=== PATIENT | male | born 2005 | race Caucasian/White ===

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

== ENCOUNTER 2024-01-15 14:24 | Outpatient (AMB) | payer MEDICAID, SELFPAY ==
[2024-01-15 14:31] VITALS: BMI 24.8
--- NOTE | 2024-01-15 14:31 | A.OFFVIS_ITS ---
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 Pt states Bilateral UE but Right UE is worse than Left UE. Starting 2 years ago w/ UE numbness, pt is right handed. Accompanied by: Mother Allergies amoxicillin [AMOXICILLIN] Allergy (Unknown, Verified 01/15/24 14:34) RASH HPI HPI COCKTAIL WAITRESS/PCP referral for DIANNA s/p Carotid US: Details: Very pleasant 18-year-old gentleman was referred to us for thoracic outlet syndrome. 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 His upper extremity weakness has progressively gotten worse over the last 2 years. 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 He reports in general weakness, heaviness, and tiring of the upper extremities. Prior to this he was a fairly active child. He denies any history of specific upper extremity sports inclusive of basketball volleyball or a pitcher for baseball. He had been researching this on his own and discovered on a chest x-ray that he had a cervical rib. He has been worked up extensively and has undergone multiple conservative therapies including physical therapy with no significant relief. Of note he is right-hand dominant and he notices that the weakness is right more so than left. He now presents for vascular evaluation. [facility] Medical History Exposure to blood-borne pathogen Social History Patient Tobacco Use Status: Never used Tobacco Review of Systems Const All systems reviewed & are unremarkable except as noted in HPI and below Reports no additional complaints ENT Reports Normal hearing present Card Denies chest pain, Denies chest pain at rest, Denies chest pain with activity and Denies pedal edema Resp Denies cough GI Denies abdominal pain Musc Denies abnormal gait, Denies muscle cramps and Denies radiating pain into limb Skin/Breast Denies skin ulcer and Denies wounds Neuro Reports Normal hearing present and Denies abnormal gait Psych Reports no additional complaints Physical Exam Vital Signs: BMI result Body Mass Index 24.8 Const General: cooperative, healthy appearing and comfortable Orientation/consciousness: oriented to person, oriented to place and oriented to time HEENT Head: Yes normal to inspection Neck Neck: Yes normal visual inspection Carotids: no bruits Chest Chest palpation & inspection: normal inspection of the chest Resp Effort & Inspection: normal respiratory effort and able to speak in complete sentences Auscultation: clear to auscultation bilaterally, no crackles, no rales, no rhonchi and no wheezes Cardio Other: Bilateral palpable brachial radial ulnar pulses. Diminishes on provocation maneuvers. Rate: regular rate Rhythm: regular rhythm Heart sounds: S1 normal heart sound present and S2 normal heart sound present Bruits: no carotid bruits Peripheral pulses: Peripheral pulses 2+ throughout GI Inspection: Yes normal to inspection Skin Wounds: no wounds Hair: normal Neuro General: oriented to person, oriented to place and oriented to time Cranial nerves: Yes CN's II-XII intact bilaterally and Yes Normal hearing present Cognition (Neuro): normal cognition Motor exam (neuro): 5/5 motor strength present throughout Extrem Other: venous exam: No significant superficial varicosities or spider telangiectasias, minimal edema General: No clubbing, No cyanosis and No edema Psych Appearance: grossly normal Mental Status: mental status grossly normal Speech and movement: Normal speech and movement present Results Reviewed Results Reviewed: Carotid duplex dated 11/28/2023 notes elevated peak systolic velocities in bilateral subclavian arteries. On chest x-ray dated 06/14/2023 there is evidence of bilateral cervical ribs. Written report and images of both were reviewed. Assessment & Plan Assessment & Plan (1) Thoracic outlet syndrome associated with cervical rib: Code(s): G54.0 - Brachial plexus disorders; Q76.0 - Spina bifida occulta Category: Medical Plan: In short patient has evidence of neurogenic thoracic outlet syndrome. This astute young man was able to diagnose this and fortunately he was able to advocate for himself to get this further evaluated. He will require thoracic outlet release along with resection of cervical rib. Unfortunately we do not do these at our institution. We will refer him to an appropriate tertiary care center as soon as possible. We will coordinate this for this very nice young man. Thank you for allowing us to participate in his care. If there are any questions or concerns please do not hesitate to contact us. Thoracic outlet syndrome thoracic outlet syndrome Coding Level of Care Code New Pt Level 4 (09594) Diagnoses Thoracic outlet syndrome associated with cervical rib G54.0; Q76.0
== END 2024-01-15 15:00 | disposition home or self-care (01) ==
PROVIDERS: PCP Nurse Practitioner Primary Care; Visit Provider Surgery Vascular Surgery
DX: G54.0 Brachial plexus disorders (principal); Q76.0 Spina bifida occulta
CPT/HCPCS: 99204

== ENCOUNTER → 2024-01-15 14:24 | Outpatient (BNVA) | payer MEDICAID, SELFPAY | PROVIDERS: PCP Nurse Practitioner Primary Care; Visit Provider Surgery Vascular Surgery | DX: G54.0 Brachial plexus disorders (principal); Q76.0 Spina bifida occulta | CPT/HCPCS: 99202 ==

== ENCOUNTER 2024-04-03 15:59 | Outpatient (REF) | payer MEDICAID, SELFPAY ==
--- NOTE | ~2024-04-03 | US_ITS ---
EXAMINATION: US SCROTUM CLINICAL INFORMATION: Epididymitis. COMPARISON: Ultrasound scrotum 09/02/2023. TECHNIQUE: A sonogram of the scrotum was performed assessing naranjo-scale appearance and color Doppler flow. Spectral Doppler analysis of the arterial and venous flow were performed in the testes bilaterally. FINDINGS: RIGHT: Right testicle measures 4.7 x 2.4 x 3.0 cm, volume 18 mL. Parenchymal echotexture is homogeneous. No focal testicular parenchymal lesions are visualized. Spectral Doppler analysis of the arterial and venous flow is normal in the right testis. Right epididymal head is normal in size. No right hydrocele or varicocele is seen. LEFT: Left testicle measures 4.7 x 2.0 x 3.3 cm, volume 17 mL. Parenchymal echotexture is homogeneous. No focal testicular parenchymal lesions are visualized. Spectral Doppler analysis of the arterial and venous flow is normal in the left testis. Left epididymal head is normal in size. No left hydrocele or varicocele is seen. US/US scrotum IMPRESSION: Normal exam. No ultrasonographic evidence of epididymitis. Electronically signed by: Julio Fair MD 04/06/2024 09:21 PM EDT
== END 2024-04-03 16:00 | disposition home or self-care (01) ==
LOC: HO.US 15:59
PROVIDERS: PCP Nurse Practitioner Primary Care; Visit Provider Nurse Practitioner Family
DX: N45.1 Epididymitis (principal)
CPT/HCPCS: 76870

== ENCOUNTER 2024-04-21 22:05 | Emergency (ER) | payer MEDICAID, SELFPAY ==
--- NOTE | ~2024-04-21 | XR_ITS ---
EXAMINATION: XR WRIST, RIGHT CLINICAL INFORMATION: Pain. COMPARISON: None available. TECHNIQUE: PA, lateral, and oblique views of the right wrist. FINDINGS: The bones and soft tissues are normal. No fracture. Alignment is anatomic with normal joint spaces. No erosions or abnormal soft tissue calcifications. XR/XR wrist RT min 3V IMPRESSION: No significant abnormality identified. Electronically signed by: Alexis Galo MD 04/22/2024 04:04 AM EDT
[2024-04-21 22:13] VITALS: BP 119/56; PULSE 76; RESP 20; TEMP 36.8; O2SAT 99; BMI 24.3
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
[2024-04-22] VITALS: BP 103/62; PULSE 63; RESP 16; TEMP 36.4; O2SAT 98
[2024-04-22] MEDS: Ibuprofen 600 MG TABLET PO (00:07)
[2024-04-22] MEDS: Acetaminophen 325 MG TABLET 650 MG PO (00:07)
== END 2024-04-22 01:41 | disposition home or self-care (01) ==
PROVIDERS: Emergency Provider Emergency Medicine; PCP Nurse Practitioner Primary Care
DX: S63.91XA Sprain of unspecified part of right wrist and hand, initial encounter (principal); V19.3XXA Pedal cyclist (driver) (passenger) injured in unspecified nontraffic accident, initial encounter; Y93.55 Activity, bike riding; Y92.410 Unspecified street and highway as the place of occurrence of the external cause; Y99.9 Unspecified external cause status
CPT/HCPCS: 73110; 99283; 99284

== ENCOUNTER 2024-05-07 16:16 | Outpatient (AMB) | payer MEDICAID, SELFPAY ==
--- NOTE | 2024-05-07 16:17 | A.OFFVIS_ITS ---
Intake Visit Reasons: 6m/US(set) Intake Note: Patient presents today for tele visit follow up on: Epididymitis Urology Medications: none Blood Thinner: none Allergies to Antibiotics: Amoxicillin City Controller Required: No Accompanied by: Self / Same As Patient Allergies amoxicillin [AMOXICILLIN] Allergy (Unknown, Verified 05/07/24 16:28) RASH Medication List - Last Reconciled 05/07/24 by ROYER Bills melatonin 10 mg PO BEDTIME PRN methylphenidate HCl ER (Concerta) 36 mg PO DAILY sertraline 25 mg PO DAILY HPI Comments Details: Jorge is a very pleasant 19-year-old male patient of Dr. Duong. He is being followed up on today via telehealth fpr his history of epididymitis. In discussion with the patient today he reports to be doing and feeling well. He denies having had any scrotal/testicular discomfort since his last office visit here approximately 6 months ago. Recent scrotal ultrasound results reviewed with the patient today. Normal exam. No ultrasound however evidence of epididymitis. He does report noting episodes of urinary dribbling we discussed lifestyle such as pelvic floor exercises to assist with this issue. When asked he does report to be sexually active with 1 partner. He reports he has been with his girlfriend for over the last 5 years and does not utilize protection. Discussed at length potential causes epididymitis as well as urinary dribbling. He otherwise denies urinary urgency, urinary frequency, incontinence, nocturia, hematuria, dysuria, foul smelling urine, changes to urinary stream, flank pain, fever, and or chills. He is happy with his current voiding parameters. [facility] Medical History Exposure to blood-borne pathogen Social History Alcohol intake: never Patient Tobacco Use Status: Never used Tobacco Review of Systems Const All systems reviewed & are unremarkable except as noted in HPI and below Physical Exam Const General: cooperative Resp Effort & Inspection: able to speak in complete sentences Psych Attitude: cooperative Thought process: Normal thought process present Thought content: Normal thought content present Insight: Fair insight present (Psych) Judgement: Fair judgement present (Psych) Telehealth Telehealth Telehealth Platform: Seafile Location of provider rendering services: practice address Location of patient: address on file Patient Identification confirmed using: Name, : Yes Telehealth method: voice only Patient verbally consented to treatment: Yes Patient verbally consented to billing insurance company: Yes Patient informed of any privacy concerns related to visit: Yes Minutes spent on Phone/Video with Pt.: 15 Results Reviewed Results Reviewed: Date of Service: 04/03/24 EXAMINATION: US SCROTUM FINDINGS: RIGHT: Right testicle measures 4.7 x 2.4 x 3.0 cm, volume 18 mL. Parenchymal echotexture is homogeneous. No focal testicular parenchymal lesions are visualized. Spectral Doppler analysis of the arterial and venous flow is normal in the right testis. Right epididymal head is normal in size. No right hydrocele or varicocele is seen. LEFT: Left testicle measures 4.7 x 2.0 x 3.3 cm, volume 17 mL. Parenchymal echotexture is homogeneous. No focal testicular parenchymal lesions are visualized. Spectral Doppler analysis of the arterial and venous flow is normal in the left testis. Left epididymal head is normal in size. No left hydrocele or varicocele is seen. IMPRESSION: Normal exam. No ultrasonographic evidence of epididymitis. Assessment & Plan Assessment & Plan (1) Epididymitis: Code(s): N45.1 - Epididymitis Category: Medical Plan Recent scrotal ultrasound results reviewed with the patient today; as noted above. Patient reports pain he had been experiencing has since subsided. Discussed further interventions to assist with urinary dribbling; information provided. We discussed bladder triggers/irritants. Follow-up in 3 months; or sooner with any issues, concerns, and or questions. Patient Instructions: The patient had an opportunity to ask questions regarding the treatment plan. All questions were answered. Physical exam, labs, and imaging were discussed and reviewed in detail. As well as risks, benefits, and discussion of treatment choices. No major barriers to understanding were identified. The patient expressed understanding and agreement with the above treatment plan. The patient was made aware they should contact our office by phone for worsening of their current condition, the appearance of new symptoms, or with any questions or concerns. Compliance is encouraged with any medications and follow up testing that is ordered. It is a privilege to be allowed the opportunity to participate in? your urological care.? Again, if you have any questions or concerns If you have any questions or concerns please do not hesitate to contact me. The office is [phone]. This note is constructed using voice recognition software. While every effort has been made to ensure accuracy wagon winder errors may have been included. Yours sincerely, ROYER Bills Coding Level of Care Code Tele Est Pt Level 3 (19389) Diagnoses Epididymitis N45.1 Time Spent (min) 15
== END 2024-05-07 16:30 | disposition home or self-care (01) ==
LOC: HO.HUSH 16:16
PROVIDERS: PCP Nurse Practitioner Primary Care; Visit Provider Nurse Practitioner Family
DX: N45.1 Epididymitis (principal)
CPT/HCPCS: 99213

== ENCOUNTER → 2024-05-07 16:16 | Outpatient (BNVA) | payer MEDICAID, SELFPAY | PROVIDERS: PCP Nurse Practitioner Primary Care; Visit Provider Nurse Practitioner Family ==

== ENCOUNTER 2024-06-20 11:45 | Outpatient (RCR) | payer OTHER, SELFPAY ==
[2024-06-20 11:54] VITALS: BMI 24.2
[2024-06-20 11:55] VITALS: BP 104/72; PULSE 80; TEMP 37.3
--- NOTE | 2024-06-20 16:08 | PC.ADMIT ---
Patient is a 19 year old who stated they want to transition from male to female. They use she/her pronouns and go by the name of, Lonnie Fleming was referred to [facility] by [facility] and were admitted from 06/09/24-06/16/24 secondary to suicidal ideations since February 2024 and worsening in the past month. She was feeling overwhelmed with school. 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 According to records patient was doing extensive research on statistical probability of dying if she jumps from the 4th or 6th floor [facility] of [facility] library having a 60/5 chance of surviving and that being good enough since it is over 50/5. Also finding a research paper on overdoses of Concerta and the case of someone taking almost 3 grams of Concerta and only having a headache and tachycardia. This was the patients first inpatient LOC. Patient stated he told his therapist his suicidal ideation and therapist recommended she go inpatient thus patient asked her friend to bring her to the hospital where she was evaluated and subsequently admitted. She is in her sophomore year at [employer]. Stated they are doing better in regards college and grades are good. Patient reports she is staying with parents who live in [place] while she is in the program and plans on moving back on campus after she completes [facility]. Discharge paperwork states to stop taking Sertraline. This was also stated on the discharge paperwork that patient brought into program. There was a note in the discharge paperwork that stated [facility] button tufting machine operator Nurse practitioner stated that Sertraline may have contributed to SI. Patient stated to this food writer that he was taking Sertraline 50 mg the entire time while he was in the hospital and has continued this since discharge from the hospital. Sertraline 50 mg was noted in [facility] paperwork notes. She stated she feels she stabilized on Sertraline 50 mg while in the hospital. She denied SI. She also stated no one told her to stop taking the medication and she feels the medication is helping her. Dr Bryan is aware. Patient is alert and oriented x4. She is calm and cooperative. She presented with anxious mood and affect. Reports feeling better since hospitalization and feels stabilized on medications. She denied SI, no HI. She was given a copy of her safety plan. Medications reconciled with patient and patients discharge paperwork from [facility]. Patient reports she usually has 2 mixed drinks on Fridays and has not had alcohol in the past 2 weeks.
--- NOTE | 2024-06-23 10:04 | HO.PHP ---
Jorge contacted the program and noted that he will be opting out of the program. Please review further the discharge summary.
== END 2024-06-20 23:59 | disposition home or self-care (01) ==
LOC: HO.PHPA 11:45
PROVIDERS: Visit Provider Psychiatry & Neurology Psychiatry
DX: F32.A Depression, unspecified (principal); F90.9 Attention-deficit hyperactivity disorder, unspecified type
CPT/HCPCS: 90791; 90853

== ENCOUNTER 2024-08-19 08:33 | Outpatient (AMB) | payer MEDICAID, SELFPAY ==
--- NOTE | 2024-08-19 09:01 | A.OFFVIS_ITS ---
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 Metal Installer Helper Required: No Accompanied by: Self / Same As Patient Allergies amoxicillin [AMOXICILLIN] Allergy (Unknown, Verified 08/19/24 09:41) RASH, HIVES gluten Allergy (Verified 08/19/24 09:41) Gastrointestinal Upset Penicillins [PCN] Allergy (Verified 08/19/24 09:41) Rash, hives Medication List - Last Reconciled 08/19/24 by ARIANA Bills- aripiprazole 5 mg PO DAILY benzoyl peroxide 5% 1 appl topical DAILY guaifenesin 200 mg PO Q4-6H PRN hydroxyzine HCl 50 mg PO Q6H PRN melatonin 10 mg PO BEDTIME PRN methylphenidate HCl ER (Concerta) 36 mg PO DAILY sertraline 50 mg PO DAILY HPI Comments Details: Jorge is a very pleasant 19-year-old male patient of Dr. Duong. He presents to the office today for follow-up of his epididymitis. In discussion with the patient today reports to be doing and feeling well. He denies having had any scrotal/testicular discomfort. Previous workup has included a scrotal ultrasounds. Original scrotal ultrasound 09/22 noted increased flow at the tail of the right epididymis raising suspicion for epididymitis. Normal appearance of testicles. Repeat scrotal ultrasound 04/22 noting normal exam. No ultrasonographic evidence of epididymitis. He does report noting episodes of urinary dribbling. We discussed pelvic floor exercises to assist. He otherwise denies any bothersome urinary issues or concerns. He denies urinary urgency, urinary frequency, incontinence, nocturia, hematuria, dysuria, foul smelling urine, changes to urinary stream, flank pain, fever, and or chills. He is happy with his current voiding parameters. In office urinalysis results reviewed with the patient today. PVR 15ml. He otherwise offers no other issues or concerns at this time. [facility] Medical History Thoracic outlet syndrome Exposure to blood-borne pathogen Surgical History H/O removal of cyst Social History Household Members: Other Household Members Other:: Lives in a dorm room with a roommate Alcohol intake: never Patient Tobacco Use Status: Never used Tobacco Review of Systems Const All systems reviewed & are unremarkable except as noted in HPI and below Physical Exam Const General: cooperative, healthy appearing, comfortable, no acute distress, well developed, alert and awake Nutritional Appearance: average body habitus Orientation/consciousness: patient oriented x3 Limitations: no limitations HEENT Head: Yes normal to inspection, Yes normocephalic and Yes atraumatic Ears: hearing grossly normal bilaterally Eyes General: appearance normal, both eyes and all related structures Neck Neck: Yes normal visual inspection and Yes trachea midline Chest Chest palpation & inspection: normal inspection of the chest Resp Effort & Inspection: normal respiratory effort and able to speak in complete sentences Cardio Rate: regular rate GI Inspection: Yes normal to inspection General: Yes no CVA tenderness Back/Spine/Pelvis Back: no CVA tenderness Skin General skin exam: no rashes or lesions noted Neuro General: patient oriented x3 Extrem General: Yes normal to inspection Psych Appearance: grossly normal and well kempt Mental Status: mental status grossly normal Speech and movement: Normal speech and movement present and Clear speech present Affect: normal affect Attitude: cooperative Thought process: Normal thought process present Thought content: Normal thought content present Insight: Good insight present (Psych) Judgement: Good judgement present (Psych) Office Procedures Post Void Residual Post Residual Void Post Void Residual (PVR): 15 [id number]-[id number] Void Residual by ultrasound Results AMB Urinalysis, Automated UA Leukoctes 0 Santino/uL Last Edit by Marli Luther on 08/19/24 09:41 UA Nitrite Last Edit by Marli Luther on 08/19/24 09:41 UA Urobilinogen 0.2 mg/dL Last Edit by Marli Luther on 08/19/24 09:41 UA Protein 0 mg/dL Last Edit by Marli Luther on 08/19/24 09:41 UA pH 6.0 Last Edit by Marli Luther on 08/19/24 09:41 UA Blood 10 Aidan/uL Last Edit by Marli Luther on 08/19/24 09:41 UA Specific Rose 1.020 Last Edit by Marli Luther on 08/19/24 09:41 UA Ketone Last Edit by Marli Luther on 08/19/24 09:41 UA Bilirubin 0 mg/dL Last Edit by Marli Luther on 08/19/24 09:41 UA Glucose 0 mg/dL Last Edit by Marli Luther on 08/19/24 09:41 Results Reviewed Results Reviewed: Laboratory Last Values Urine pH (Auto) 6.0 08/19/24 09:02 Specific Rose (Auto) 1.020 08/19/24 09:02 Urine Protein (Auto) 0 mg/dL 08/19/24 09:02 Glucose (UA)(Auto) 0 mg/dL 08/19/24 09:02 Urine Blood (Auto) 10 Aidan/uL 08/19/24 09:02 Urine Bilirubin (Auto) 0 mg/dL 08/19/24 09:02 Urine Urobilinogen (Auto) 0.2 mg/dL 08/19/24 09:02 Leukocyte Esterase (Auto) 0 Santino/uL 08/19/24 09:02 Assessment & Plan Assessment & Plan (1) Epididymitis: Code(s): N45.1 - Epididymitis Category: Medical Plan Patient denies any bothersome urinary issues or concerns. He reports be happy with current voiding parameters. Epididymitis has since resolved. We discussed importance of safe sex. Discussed further interventions to assist with urinary dribbling; information pr ovided. Follow-up p.r.n. Orders: Orders AMB Post Void Residual by ultrasound Today Z13.9 - Encounter for screening, unspecified AMB Urinalysis Automated Today Z13.9 - Encounter for screening, unspecified Patient Instructions: The patient had an opportunity to ask questions regarding the treatment plan. All questions were answered. Physical exam, labs, and imaging were discussed and reviewed in detail. As well as risks, benefits, and discussion of treatment choices. No major barriers to understanding were identified. The patient expressed understanding and agreement with the above treatment plan. The patient was made aware they should contact our office by phone for worsening of their current condition, the appearance of new symptoms, or with any questions or concerns. Compliance is encouraged with any medications and follow up testing that is ordered. It is a privilege to be allowed the opportunity to participate in? your urological care.? Again, if you have any questions or concerns If you have any questions or concerns please do not hesitate to contact me. The office is [phone]. This note is constructed using voice recognition software. While every effort has been made to ensure accuracy sanitation engineer errors may have been included. Yours sincerely, ROYER Bills Coding Level of Care Code Est Pt Level 3 (85793) Diagnoses Epididymitis N45.1 CPT Codes Post Residual Void - PVR CPT Code: 35079-Llya Void Residual by ultrasound ([id number])
== END 2024-08-19 09:30 | disposition home or self-care (01) ==
PROVIDERS: PCP Nurse Practitioner Primary Care; Visit Provider Nurse Practitioner Family
DX: N45.1 Epididymitis (principal); Z13.9 Encounter for screening, unspecified
CPT/HCPCS: 99213

== ENCOUNTER → 2024-08-19 08:33 | Outpatient (BNVA) | payer MEDICAID, SELFPAY | PROVIDERS: PCP Nurse Practitioner Primary Care; Visit Provider Nurse Practitioner Family | DX: N45.1 Epididymitis (principal) | CPT/HCPCS: 51798; 81003; 99212 ==

== ENCOUNTER 2024-10-03 13:41 | Outpatient (REF) | payer MEDICAID, SELFPAY ==
--- NOTE | ~2024-10-03 | US_ITS ---
EXAMINATION: Noninvasive assessment of the right upper extremity with ARTERIAL DUPLEX.). CLINICAL INFORMATION: Pain, right upper extremity TECHNIQUE: Duplex Doppler techniques with waveform analysis and measurement of velocities in the right subclavian artery, axillary artery, tracheal artery, radial and ulnar arteries. COMPARISON: None FINDINGS: DIRECT DUPLEX DOPPLER FINDINGS: RIGHT UPPER EXTREMITY: Subclavian artery: 22 cm/s, phasicity: Triphasic. Axillary artery: 146 cm/s, phasicity: Triphasic Brachial artery (proximal): 92 cm/s, phasicity: Triphasic. Brachial artery (distal): 107 cm/s, phasicity: Triphasic. Radial artery: 41 cm/s, phasicity: Triphasic. Ulnar artery: 32 cm/s, phasicity: Triphasic. US/US arterial duplex UE RT IMPRESSION: Normal patency and triphasic waveforms. Electronically signed by: Néstor Ortiz MD 10/06/2024 03:38 PM EDT
--- NOTE | ~2024-10-03 | US_ITS ---
EXAMINATION: US TRIPLEX UPPER EXTREMITY, RIGHT CLINICAL INFORMATION: Pain, right upper extremity. COMPARISON: None available. TECHNIQUE: Color-flow triplex imaging with spectral analysis and compression Doppler was performed on the right upper extremity. FINDINGS: The right internal jugular, subclavian, and axillary veins are patent and free of thrombus. The imaged segment of the right brachiocephalic vein is patent. Spectral doppler waveforms are normal. The brachial, basilic, cephalic, radial, and ulnar veins are patent and compressible. US/US venous duplex UE RT IMPRESSION: No acute deep venous thrombosis involving the right upper extremity. Negative exam.. Electronically signed by: Néstor Ortiz MD 10/06/2024 03:33 PM EDT
--- OUTSIDE RECORDS SUMMARY | 2024-10-03 15:18 | XMS_ITS | Encounter Summary ---
Author Organization [employer] Address [address] [place] [address] [address] [place] [address] Care Team Providers Care Elastic Tape Inserter Name Role Phone Kartik Cuevas MD Primary Care Provider [phone] Ruby Duong Primary Care Provider [phone] Reason for Visit * Reason Onset Date Comments Other 02/07/2023 Encounter Details Date Type Department Care Team ([facility] st Contact Info) Description 02/07/2023 Telephone [facility] [address] [place] [address] Kartik Cuevas MD [address] [place], [place] [phone] Other Social History Tobacco Use Types Packs/Day Years Used Date Smoking Tobacco: Never Smokeless Tobacco: Never Sex and Gender Information Value Date Recorded Sex Assigned at Male 05/29/2022 10:30 AM EDT Legal Sex Male 10:30 AM EDT Gender Identity Transgender Female 07/28/2024 2: 01 PM EST Sexual Orientation Choose not to disclose 2021 10:30 AM EDT COVID-19 Exposure Response Date Recorded In the last 10 days, have yo u been in contact with someone who was confirmed or suspected to have Coronavirus/COVID-19? No / Unsure 02/07/2023 8:34 AM EDT documented as of this encounter Miscellaneous Notes * Telephone Encounter - Kartik Cuevas MD - 02/12/2023 2:38 PM EDT Letter done. * Telephone Encounter - Elizabeth Kowalski - 02/07/2023 3:27 PM EDT Tc from [facility] at [facility] requesting a medical necessity letter from PCP for patient toget wisdom teeth extracted under general anesthesia. Patient has severe dental anxiety and sedationin office has not worked in the past. This letter is needed for medical insurance to approve it. Any further questions please call [phone] and fax number [phone]. documented in this encounter Plan of Treatment Upcoming Encounters Date Type Department Care Team (Late st Contact Info) Description 12/09/2024 9:45 AM EDT Office Visit [facility] [address] [place], [place] [phone] Ruby Duong ANP [address] [place] [address] documented as of this encounter Visit Diagnoses Not on filedocumented in this encounter Care Teams Elastic Tape Inserter Relationship Specialty Start Date End Date Kartik Cuevas MD [address] [place] [address] [phone] PCP - General Pediatrics 11/29/18 05/17/23 Ruby Duong ANP [address] [place] [id number] PCP - General Family Medicine 05/18/23 documented as of this encounter
--- OUTSIDE RECORDS SUMMARY | 2024-10-03 15:18 | XMS_ITS | Encounter Summary ---
Author Organization [employer] Address [address] [facility] [address] [place] [address] Care Team Providers Care Construction Pit Worker Name Role Phone Ruby Duong Primary Care Provider [phone] Reason for Visit * Reason Onset Date Comments Care Management 09/16/2024 C3- chart revi ew Encounter Details Date Type Department Care Team ([facility] st Contact Info) Description 09/16/2024 Telephone [facility] [address] [place] [address] Ruby Duong ANP [address] [place] [address] Care Management (C3CM- chart review) Social History Tobacco Use Types Packs/Day Years Used Date Smoking Tobacco: Never Passive Smoke Exposure: Never Smokeless Tobacco: Never Alcohol Use Standard Drinks/Week Comments Never 0 (1 standard drink = 0.6 oz pur e alcohol) Alcohol Answer Date Recorded How often do you have a drink containing alcohol ? 2 06/16/2024 How many drinks containing a lcohol do you have on a typical day when you are drinking? 0 06/16/2024 How often do you have six or more drinks on one occasion? 0 06/16/2024 Housing Stability Answer Date Recorded What is your housing situation today? I have james aguayo 06/01/[address] you li ve. Do you have problems with any of the following? None of the above 06/01/2023 Food Insecurity Answer Date Recorded Within the past 12 months, y ou worried that your food would run out before you got money to buy more: Never True 06/01/2023 Within the past 12 months,th e food you bought just didn't last and you didn't have enough money to get more: Never True 09/2022 Transportation Answer Date Recorded In the past 12 months, has l ack of transportation kept you from medical appts, meetings, work or from getting things needed for daily living? No 06/01/2023 Utilities Answer Date Recorded In the past 12 months, has t he electric, gas, oil or water company threatened to shut off services in your home? No 06/01/2023 Depression Answer Date Recorded Patient Health Questionnaire-2 Score 0 08/17/2023 Internet Access Answer Date Recorded Internet Access Q1 Yes 03/31/2024 Internet Access Q2 Not on file 03/31/2024 Sex and Gender Information Value Date Recorded Sex Assigned at Male 05/29/2022 10:30 AM EDT Legal Sex Male 10:30 AM EDT Gender Identity Transgender Female 07/28/2024 2: 01 PM EST Sexual Orientation Choose not to disclose 2021 10:30 AM EDT documented as of this encounter Miscellaneous Notes * Telephone Encounter - Shaw Edwards RN - 09/16/2024 8:42 AM EST BERONICA Edwards RN, performed chart review, in anticipation of initial assessment with patient, as patient has stratified for [facility]3 Adult Complex Care through the ADT feed. 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 Specialists include Vascular Surgery, Orthopedic Surgery, Cardiology, and [facility]. ED visits/Hospitalizations within the last 12 months include [facility] 06/09/24-06/16/24 Dx SI, [facility] 05/13/24, [facility] 04/21/24, and Visit 12/18/23. Patient admitted to [facility] 09/12/24-09/15/24 Dx rib resection. Last appointment in PCP office on 04/21/24. Patient no showed visit with PCP on 08/08/24. No future appointments scheduled at this time. documented in this encounter Plan of Treatment Upcoming Encounters Date Type Department Care Team (Late st Contact Info) Description 12/09/2024 9:45 AM EDT Office Visit [facility] [address] [place] [address] Ruby Duong ANP [address] [place] [address] documented as of this encounter Visit Diagnoses Not on filedocumented in this encounter Care Teams Construction Pit Worker Relationship Specialty Start Date End Date Ruby Duong ANP [address] [place] [phone] PCP - General Family Medicine 05/18/23 documented as of this encounter
--- OUTSIDE RECORDS SUMMARY | 2024-10-03 15:18 | XMS_ITS | Encounter Summary ---
Author Organization [employer] Address [address] [facility] [address]t [place] [address] Care Team Providers Care Airport Operations Supervisor Name Role Phone Kartik Cuevas MD Primary Care Provider [phone] Ruby Duong Primary Care Provider [phone] Encounter Details Date Type Department Care Team (Late st Contact Info) Description 02/07/2023 Telephone [facility] [address] [place] [phone] Kartik Cuevas MD [address] [place] [address] Social History Tobacco Use Types Packs/Day Years [...] AM EDT documented as of this encounter Plan of Treatment Upcoming Encounters Date Type Department Care Team (Late st Contact Info) Description 12/09/2024 9:45 AM EDT Office Visit [facility] [address] [place] [phone] Ruby Duong ANP [address] [place] [address] documented as of this encounter Visit Diagnoses Not on filedocumented in this encounter Care Teams Airport Operations Supervisor Relationship Specialty Start Date End Date Kartik Cuevas MD [address] [place] [address] PCP - General Pediatrics 11/29/18 05/17/23 Ruby Duong ANP [address] [place] [address] PCP - General Family Medicine 05/18/23 documented as of this encounter
--- OUTSIDE RECORDS SUMMARY | 2024-10-03 15:18 | XMS_ITS | Encounter Summary ---
Author Organization [employer] Address [address] [facility] 7t [place] [address] Care Team Providers Care Net Repairer Name Role Phone Ruby Duong Primary Care Provider [phone] Reason for Visit * Reason Onset Date Comments ER Follow-up 10/17/2023 Encounter Details Date Type Department Care Team ([facility] st Contact Info) Description 10/17/2023 Telephone [facility] MEDICINE [address] [place], [place] [phone] Ruby Duong ANP [address] [place] [address] ER Follow-up Social History Tobacco Use Types Packs/Day Years Used Date Smoking Tobacco: Never Passive Smoke Exposure: Never Smokeless Tobacco: Never Alcohol Use Standard Drinks/Week Comments Never 0 (1 standard drink = 0.6 oz pur e alcohol) Housing Stability Answer Date Recorded What is [...] t he electric, gas, oil or water [employer] threatened to shut off services in your home? No 06/01/2023 Depression Answer Date Recorded Patient Health Questionnaire-2 Score 0 08/17/2023 Sex and Gender Information Value Date Recorded Sex Assigned at Male 05/29/2022 10:30 AM EDT Legal Sex Male 10:30 AM EDT Gender Identity Transgender Female 07/28/2024 2: 01 PM EST Sexual Orientation Choose not to disclose 2021 10:30 AM EDT documented as of this encounter Miscellaneous Notes * Telephone Encounter - Chica Gallego RN - 10/22/2023 11:32 AM EDT TC placed to patient regarding note below. Patient states that he was seen for a bad episode of chest pain in [facility] ED in 06/21. He states that his BP at the time was very high. Do not see this ED notein chart although there are recent ED visits for testicular pain and concerns about his eye. Patient states that he is still having episodes of chest pain that are short in duration, come on randomly, and last less than 10 minutes. These episodes occur about once a week. He thinks perhaps heshould see a rim roller setter for further evaluation. Patient states that these episodes tend to occur when he is doing his homework and not when engaging in physical activity, such as climbing stairs ordoing exercise. He states that the last episode was a couple of days ago. He states that he has taken his BP at home recently and it is normal. Does not have any records of BP readings from past or recently. Explained to patient that without a recent office visit about chest pain, it may be difficult to place a referral. Offered an office visit with Dr. Alatorre this , 10/25/23, @ 11:30am for evaluation, and patient agreed. No other questions or concerns at this time. Patient advised to go to EDif symptoms recur, worsen, persist. Routing message to PCP for review and back to Green Team Nursesto search for any [facility] ED records we may be missing from 2022. Patient calling to report ED visit on : Date: 06/21 Hospital: [facility] Seen for: Chest pain Patient advised will forward to team nurse for follow up * Telephone Encounter - Lynne Billingsley Hall - 10/17/2023 3:56 PM EDT Patient calling to report ED visit on : Date: 06/21 Hospital: [facility] Seen for: Chest pain Patient advised will forward to team nurse for follow up documented in this encounter Plan of Treatment Upcoming Encounters Date Type Department Care Team (Late st Contact Info) Description 12/09/2024 9:45 AM EDT Office Visit [facility] [address] [place] [address] Ruby Duong ANP [address] [place] [address] documented as of this encounter Visit Diagnoses Not on filedocumented in this encounter Care Teams Net Repairer Relationship Specialty Start Date End Date Ruby Duong ANP [address] [place] [phone] PCP - General Family Medicine 05/18/23 documented as of this encounter
--- OUTSIDE RECORDS SUMMARY | 2024-10-03 15:18 | XMS_ITS | Encounter Summary ---
Author Organization [employer] Address [address] [facility] 7t [place] [address] Care Team Providers Care Drum Printer Name Role Phone Ruby Duong Primary Care Provider [phone] Reason for Visit * Reason Onset Date Comments Med Refill 03/22/2024 Encounter Details Date Type Department Care Team ([facility] st Contact Info) Description 03/22/2024 Refill [facility] MEDICINE [address] [place] [address] Ruby Duong ANP [address] [place] [address] Acne vulgaris Social History Tobacco Use Types Packs/Day Years [...] the past 12 months, has t he [employer], oil or water company threatened to shut [...] Description 12/09/2024 9:45 AM EDT Office Visit [facility] [address] [place] [phone] Ruby Duong ANP [address] [place] [phone] documented as of this encounter Visit Diagnoses Diagnosis Acne vulgaris Other acne documented in this encounter Care Teams Drum Printer Relationship Specialty Start Date End Date Ruby Duong ANP [address] [place] [phone] PCP - General Family Medicine 05/18/23 documented as of this encounter
--- OUTSIDE RECORDS SUMMARY | 2024-10-03 15:18 | XMS_ITS | Encounter Summary ---
Author Organization [employer] Address [address] [place] [address] 7t [place] [address] Care Team Providers Care Mainframe Systems Engineer Name Role Phone Kartik Cuevas MD Primary Care Provider [phone] Ruby Duong Primary Care Provider Reason for Visit * Reason Onset Date Comments Nurse Triage 04/26/2023 Encounter Details Date Type Department Care Team (Late st Contact Info) Description 04/26/2023 Telephone [facility] MEDICINE [address] [place] [address] Kartik Cuevas MD [address] [place] [address] Nurse Triage Social History Tobacco Use Types Packs/Day Years [...] encounter Miscellaneous Notes * Telephone Encounter - Hawa Jordan RN - 04/26/2023 2:59 PM EDT Triage call Pt reports sore throat for a week now, fever of 100.5 and epigastric pain that has become more constant. Pt is not having difficulty swallowing is eating well . Pt denies diarrhea , vomiting or nausea but, reports I felt like throwing up . Last BM was yesterday and stool was hard. Pt is encouraged to increase liquids to 8 glasses/day with juices, ie. apple, prune. Pt agrees to try. Pt is offered the [facility] today but, unable to come due to no apts available at this time in [facility]. Advisedto come first thing in the morning [place] opens at 830am till 400pm. Pt agrees. Pt is advised if symptoms become much worse, increased fever, abdominal pain to seek evaluation in closest ED not waiting for morning WIC and Pt agreed. Multiple (2) protocols were used on this call. Disposition for Call: See in Office or Video Visit Today or Tomorrow Protocol Used: Sore Throat (Adult) Protocol-Based Disposition: See in Office or Video Visit Today or Tomorrow Video visit not offered Positive Triage Question: * Fever present > 3 days (72 hours) * All higher-acuity triage questions were negative Care Advice Discussed: * Drink Plenty of Liquids * Reasons To Call Back - Sore throat is the main symptom and it lasts longer than 48 hours - Sore throat is mild but lasts longer than 4 days - Fever lasts longer than 3 days - You become worse Protocol Used: Abdominal Pain - Upper (Adult) Protocol-Based Disposition: See in Office or Video Visit Today or Tomorrow Video visit not offered Positive Triage Question: * Moderate pain that comes and goes (cramps) lasts > 24 hours * All higher-acuity triage questions were negative Care Advice Discussed: * Reassurance and Education - Stomach Pain * Antacid Medicine * Drink Clear Fluids * Reasons To Call Back - Severe pain present over 1 hour - Constant pain present over 2 hours - Moderate pains come and go for more than 24 hours - Mild pains come and go for more than 72 hours - You become worse * Telephone Encounter - Key Quesada - 04/26/2023 2:40 PM EDT Symptom: Sore Throat and abdominal pain Outcome: Schedule an appointment to be seen within 24 hours Reason: Caller denied all higher acuity questions documented in this encounter Plan of Treatment Upcoming Encounters Date Type Department Care Team (Late st Contact Info) Description 12/09/2024 9:45 AM EDT Office Visit [facility] MEDICINE [address] [place] [address] Ruby Duong ANP [address] [place] [address] documented as of this encounter Visit Diagnoses Not on filedocumented in this encounter Care Teams Mainframe Systems Engineer Relationship Specialty Start Date End Date Kartik Cuevas MD [address] [place] [phone] PCP - General Pediatrics 11/29/18 05/17/23 Ruby Duong ANP [address] [place] [phone] PCP - General Family Medicine 05/18/23 documented as of this encounter
--- OUTSIDE RECORDS SUMMARY | 2024-10-03 15:18 | XMS_ITS | Clinical Summary ---
Author Organization [employer] Address [address] [facility] 7t [place] [address] Care Team Providers Care Diesel Engine Mechanic Name Role Phone Ruby Duong LENA Primary Care Provider [phone] Allergies Active Allergy Reactions Criticality Noted Date Comments Amoxicillin Rash Low 10/17/2022 Penicillins Anaphylaxis,Rash High 04/14/2016 Medications benzoyl peroxide (Benzoyl Peroxide Wash) 5 % external washIndications: Acne vulgaris USE IN PLACE OF BODY WASH ON CHEST AND BACK 236 mL 2 4 Active linaCLOtide (Linzess) 72 MCG capsule Take 72 mcg by mouth before breakfast. 4 Active Concerta 27 MG CR tablet Take 27 mg by mouth in the morning. Active ARIPiprazole (Abilify) 5 MG tablet Take 5 mg by mouth Once per day. 4 Active estradiol (Estrace) 2 MG tabletIndication s:Gender dysphoria Take 1 tablet (2 mg) by mouth 2 times daily. 180 tablet 1 5 Active spironolactone (Aldactone) 50 MG tabletIndication s:Gender dysphoria Take 1 tablet (50 mg) by mouth Once per day. 90 tablet 5 Active cetirizine (ZyrTEC) 10 MG tabletIndication s:Allergic rhinitis due to animal hair and dander Take 1 tablet (10 mg) by mouth if needed each day for allergies. 90 tablet 5 11/07/19 25 Active famotidine (Pepcid) 20 MG tabletIndication s:Gastroesophage al reflux disease, unspecified whether esophagitis present Take 1 tablet twice daily as needed for acid reflux 60 tablet 5 Active sildenafil (Viagra) 50 MG tabletIndication s:Drug-induced erectile dysfunction Take 1 tablet as needed 30 to 60 minutes before sexual activity 30 tablet 1 5 Active Active Problems Problem Noted Date Diagnosed Date Nonintractable headache 11/19/2023 Assessment & Plan (11/19/2023 11:47 AM EDT): It could be related to vascular compression at thoracic outlet level vs Concerta? Will order labs to ro DM, thyroid issues. Recent labs reviewed. Order carotid artery US to ro compression. Advised to remain hydrated, change position very slowly FU w PCP in 3-4w Chest pain 10/25/2023 Overview (10/25/2023): - Non cardiac in nature, multiple past ECGs normal, vital signs stable - Likely psychosocial stressors, no evidence of costochondritis or reflux - Somatic techniques discussed and advised to speak with therapist about stress relieving techniques - Continue to monitor and let us know if symptoms worsen or do not improve Assessment & Plan (10/25/2023 11:53 AM EDT): - Non cardiac in nature, multiple past ECGs normal, vital signs stable - Likely psychosocial stressors, no evidence of costochondritis or reflux - Somatic techniques discussed and advised to speak with therapist about stress relieving techniques - Continue to monitor and let us know if symptoms worsen or do not improve De Quervain's tenosynovitis 10/25/2023 Mild carpal tunnel syndrome of right wrist 10/24 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 FU w PCP Right arm pain 10/25/2023 Overview (10/25/2023): - Pt has concerns about his X-rays, which are not available to me at this time - Records he needs a new referral to Orthopedics, referral placed 10/25/23 Assessment & Plan (10/25/2023 11:52 AM EDT): - Pt has concerns about his X-rays, which are not available to me at this time - Records he needs a new referral to Orthopedics, referral placed 10/25/23 Chronic right shoulder pain 02/07/2023 Constipation 10/17/2022 Hypertriglyceridemia 07/03/2022 Learning disability 07/03/2022 Attention deficit hyperactivity disorder 022 Resolved Problems Problem Noted Date Diagnosed Date Resolved Date Tachycardia 11/19/2023 12/10/2023 Assessment & Plan (11/19/2023 11:50 AM EDT): Improved at the end of visit. FU with PCP, may need ECG, sec to concerta? Epididymitis 10/25/2023 12/10/2023 Exposure to blood-borne pathogen 10/25/2023 12/10/2023 Exposure to body fluid 10/25/202312/09 Pain in right testicle 10/25/202312/09 Relapsing fever 10/17/2022 10/17/2022 Developmental academic disorder 10/09/2022 10/17/2022 ADHD (attention deficit hype ractivity disorder), combined type 07/03/2022 10/17/2022 Encounters Date Type Department Care Team Description 09/16/2024 Patient Outreach [facility] [address] [place] [address] Ruby Duong ANP Transition Of Care (Tcm) (HDF unscheduled. ) 09/16/[address] [address] Ruby Duong ANP Care Management (C3CM- chart review) 09/08/[address] [phone] Ruby Duong ANP Referral 08/08/[address] [place] [address] Ruby Duong ANP 08/03/2024 Travel 07/28/2024 Orders Only [facility] [address] [place] [address] Ruby Duong ANP from Last 3 Months Immunizations Name Administration Dates Next Due DTaP, 5 pertussis antigens 06/19/2005,,2004,03/22 HPV 9-Valent 05/24/2017,03/30/2016 Hep A, ped/adol, 2 dose 05/24/2017,03/30/2016 Hep B, Adolescent or Pediatric 2004,2003,2004 Hep B, adult 11/26/2023,06/25/2023,05/28/2023 HiB, unspecified 2004 Hib (PRP-T) 2004,2004 IPV 03/30/2016, 5,2004,03/22 Influenza injectable quadriv alent preservative free 05/28/2023,06/29/2021,10/01/2020,05/14,05/24/2017,04/14/2016,05/07/2014 MMR 02/18/2013,2005 Meningococcal MCV4P ACYW-135 10/01/2020,04/14/20 16 Pfizer Covid-19 Vaccine 12+ 04/21/2024,1 ,10/22/2021,12/14,11/23/2020 Pfizer Covid-19 Vaccine 12+ kelly-sucrose ([place]keon Cap) 10/22/2021 Pneumococcal Conjugate PCV 13 06/02/2005 ,2004,2004,03/22 Tdap 03/30/2016 Varicella 02/18/2013,2005,2004 Social History Tobacco Use Types Packs/Day Years Used Date Smoking Tobacco: Never Passive Smoke Exposure: Never Smokeless Tobacco: Never Tobacco Cessation:Counseling Given: Not Answered Alcohol Use Standard Drinks/Week Comments Never 0 [...] not to disclose 2021 10:30 AM EDT Last Filed Vital Signs Vital Sign Reading Time Taken Comments Blood Pressure 117/70 04/21/2024 11:35 AM EDT Pulse 78 04/21/2024 11:35 AM EDT Temperature 36.9 ??C (98.5 ??F) 04/21/2024 11:35 AM E DT Respiratory Rate 16 04/21/2024 11:35 AM EDT Oxygen Saturation 98% 04/21/2024 11:35 AM EDT Inhaled Oxygen Concentration - - Weight 73.7 kg (162 lb 6.4 oz) 04/21/2024 11:35 AM EDT Height 175.3 cm (5' 9 ) 04/21/2024 11:35 AM EDT Body Mass Index 23.98 04/21/2024 11:35 AM EDT Plan of Treatment Upcoming Encounters Date Type Department Care Team (Late st Contact Info) Description 12/09/2024 9:45 AM EDT Office Visit [facility] [address] [place], [place] [phone] Ruby Duong, ANP [address] [place] [address] Health Maintenance Due Date Last Done Comments Family Planning (PISQ) 01/18/2019 Depression Screening 08/17/2024 08/17/2023, 08/17/19 24 SDOH Screening 08/17/2024 08/17/2023 Chlamydia and Gonorrhea Screening 09/01/2024 09/01/2023, 02/16/2021 Tobacco Screening 04/21/2025 04/21/2024 Alcohol/Substance Use Screening 06/16/2025 06/16/2024 DTaP/Tdap/Td Vaccines (6 - Td or Tdap) 03/30/2026 03/30/2016, 06/19/2005, 2004, Additional history exists Zoster Vaccines (1 of 2) 01/18/2054 RSV Patients and Patients Aged 60 years or older (1 - 1-dose 75+ series) 01/18/2079 HIB Vaccines Aged Out 2004, 04/30, 2004 No longer eligible based on patient's age to complete this topic Pneumococcal Vaccine: Pediatrics (0 to 5 Years) and At-Risk Patients (6 to 49) Years) Completed 06/02/2005, 2004, 2004, Additional history exists IPV Vaccines Completed 03/30/2016, 07/2004, 2004, Additional history exists HPV Vaccines Completed 05/24/2017, 03/30/2016 Hepatitis A Vaccines Completed 05/24/2017, 03/30/20 16 Meningococcal Vaccine Completed 10/01/2020, 016 HIV Screening Completed 05/26/2023, 02/16/2021 Hepatitis C Screening Completed 05/26/2023, 021 Hepatitis B Vaccines Completed 11/26/2023, 06/25/2023, 05/28/2023, Additional history exists COVID-19 Vaccine Completed 04/21/2024, , 10/22/2021, Additional history exists Influenza Vaccine Completed 04/25/2024, , 06/29/2021, Additional history exists RSV under 20 months Aged Out No longe r eligible based on patient's age to complete this topic Rotavirus Vaccines Aged Out No longer eligible based on patient's age to complete this topic Procedures Procedure Name Priority Date/Time Associated Diagnosis Comments CHLAMYDIA/N. GONORRHOEAE RNA, TMA, UROGENITAL Routine 09/01/2023 7:22 PM EST HEPATITIS EXPOSURE SOURCE Routine 05/26/2023 2:23 PM EDT HIV ANTIBODY/ANTIGEN ([place] DPH) Routine 05/26/2023 2:23 PM EDT from Last 3 Months or Most Recently Relevant to Health Maintenance Results * Chlamydia/N. Gonorrhoeae RNA, TMA, Urogenitial (09/01/2023 7:22 PM EST) CT PCR NOT DETECTED Not Detect. [facility] Comment:A not detected test result does not exclude the possibilityof infection because test results can be affected byimproper specimen collection, concurrent antibiotic therapy,or the number of organisms in the specimen which may bebelow the sensitivity of the test. As with many diagnostictests, results from the Xpert CT/NG assay should beinterpreted in conjunction with other laboratory andclinical data available to the clinician.Xpert CT/NG performance has not been evaluated in patientsless than 14 years of age. The assay should not be used forthe evaluationof suspected sexual abuse or for other medico-legalindications. Additional testing is recommended in anycircumstance when false positive or false negative resultscould lead to adverse medical, social or psychologicalconsequences. NG PCR NOT DETECTED Not Detect. [facility] Comment:A not detected test result does not exclude the possibilityof infection because test results can be affected byimproper specimen collection, concurrent antibiotic therapy,or the number of organisms in the specimen which may bebelow the sensitivity of the test. As with many diagnostictests, results from the Xpert CT/NG assay should beinterpreted in conjunction with other laboratory andclinical data available to the clinician.Xpert CT/NG performance has not been evaluated in patientsless than 14 years of age. The assay should not be used forthe evaluationof suspected sexual abuse or for other medico-legalindications. Additional testing is recommended in anycircumstance when false positive or false negative resultscould lead to adverse medical, social or psychologicalconsequences. 09/01/2023 7:22 PM EST 09/01/2023 7:26 PM EST Narrative [facility] - 09/02/2023 2:57 AM EST [facility] External Data Provider LAB MICROBIOLOGY - GENERAL ORDERABLES Final Result Performing Organization Address [facility]/ZIP Co de Phone Number [facility] [address] [place] [phone] * Hepatitis Exposure Source (05/26/2023 2:23 PM EDT) [facility] ~Hepatitis B Surface Antibody NONREACTIVE Nonreactive [facility] Comment:Nonreactive: < 8.00 mIU/mL Hepatitis B Core Antibody Nonreactive Nonreactive [facility] Hepatitis C Ab NonReactive Nonreactive [facility] Hepatitis B Surface Ag Negative Negative [facility] 05/26/2023 2:23 PM EDT 05/26/2023 2:46 PM EDT [facility] External Provider LAB BLO OD ORDERABLES Final Result Performing Organization Address [facility] Co de Phone Number [facility] [address] [place] [phone] * HIV Ab/Ag (SC RICHY) (05/26/2023 2:23 PM EDT) [facility] HIV AB/AG Nonreactive Nonreactive [facility] Comment:HIV-1 p24 Ag and/or HIV-1/HIV-2 Ab not detected.A test result that is nonreactive does not exclude thepossibility of exposure to or infection with HIV-1 and/orHIV-2. Nonreactive results in this assay for individualswith prior exposure to HIV-1 and/or HIV-2 may be due toantigen and antibody levels that are below the limit ofdetection of this assay.The Reaction HIV Ag/Ab Combo assay result andsupplemental assay results should be interpreted inconjunction with the patient's clinical presentation,history and other laboratory results. If the results areinconsistent with clinical evidence, additional testing issuggested to confirm the result. 05/26/2023 2:23 PM EDT 05/26/2023 2:46 PM EDT us Generic External Data Provider LAB BLOOD ORDERAB LES Final Result [facility] [address] [place] [phone] from Last 3 Months or Most Recently Relevant to Health Maintenance Insurance [facility] [employer] Care Teams Diesel Engine Mechanic Relationship Specialty Start Date End Date Ruby Duong ANP [address] [place] [phone] PCP - General Family Medicine 05/18/23
--- OUTSIDE RECORDS SUMMARY | 2024-10-03 15:18 | XMS_ITS | Encounter Summary ---
Author Organization [email or web address] Address [address] [facility] [address]t [place] [address] Care Team Providers Care Dragline Mechanic Name Role Phone Ruby Duong Primary Care Provider [phone] Reason for Visit * Reason Onset Date Comments Med Refill 01/05/2024 Encounter Details Date Type Department Care Team ([facility] st Contact Info) Description 01/05/2024 Refill [facility] MEDICINE [address] [place], [place] [phone] Ruby Duong ANP [address] [place] [address] Acne vulgaris Social History Tobacco Use Types [...] the past 12 months, has t he [employer], oil or water company threatened to shut [...] Description 12/09/2024 9:45 AM EDT Office Visit [facility] MEDICINE [address] [place] [phone] Ruby Duong ANP [address] [place] [phone] documented as of this encounter Visit Diagnoses Diagnosis Acne vulgaris Other acne documented in this encounter Care Teams Dragline Mechanic Relationship Specialty Start Date End Date Ruby Duong ANP [address] [place] [phone] PCP - General Family Medicine 05/18/23 documented as of this encounter
--- OUTSIDE RECORDS SUMMARY | 2024-10-03 15:18 | XMS_ITS | Encounter Summary ---
Author Organization [employer] Address [address] [facility] 7t [place] [address] Care Team Providers Care Machine Heel Seat Laster Name Role Phone Ruby Duong Primary Care Provider [phone] Reason for Visit * Reason Onset Date Comments Referral 09/08/2024 Encounter Details Date Type Department Care Team ([facility] [place] st Contact Info) Description 09/08/[address] [facility] MEDICINE [address] [place] [address] Ruby Duong ANP [address] [place] [address] Referral Social History Tobacco Use Types Packs/Day Years [...] is your housing situation today? I have jamessivan aguayo 06/01/[address] you [...] encounter Miscellaneous Notes * Telephone Encounter - Christina Dowell RN - 09/16/2024 3:50 PM EST Faxed script to Eladio as below * Telephone Encounter - Cinthia Husain RN - 09/12/2024 2:13 PM EST Script generated, placed on PCP desk for signature. * Telephone Encounter - Erasmo Jo - 09/12/2024 12:04 PM EST TC from Eladio who received insurance referral below Address: [address] [place] [address] Facility Name: [facility] Type of Specialist: [facility] DX: Referring for speech Therapy Eladio Mejía submitted referral to [facility] and denied, they told him its not a referral that is needed but a script that is required for this service. Script need to state below requirements: Members Name DX of why service required : F64.9 Reason for script : speech therapy Date of Script (would be today date) Prescribing providers Signature and contact information including NPI and telephone number . Please fax to Eladio : [phone] * Telephone Encounter - Fatoumata Singh - 09/11/2024 9:49 AM EST Auth # [id number] 12 visit start date 09/08/2024 end 09/08/2025 was faxed to [phone] * Telephone Encounter - Erasmo Jo - 09/08/2024 12:18 PM EST TC from Eladio requesting renewal of referral : DATE: 09/19/24 TIME: 10am Address: [address] [place] [address] Facility Name: [facility] Type of Specialist: [facility] DX: Referring for speech Therapy [facility] Phone # : [phone] Fax #: [phone] documented in this encounter Plan of Treatment Upcoming Encounters Date Type Department Care Team (Late st Contact Info) Description 12/09/2024 9:45 AM EDT Office Visit [facility] MEDICINE [address] [place] [address] Ruby Duong ANP [address] [place] [address] documented as of this encounter Visit Diagnoses Not on filedocumented in this encounter Care Teams Machine Heel Seat Laster Relationship Specialty Start Date End Date Ruby Duong ANP [address] [place] [address] PCP - General Family Medicine 05/18/23 documented as of this encounter
--- OUTSIDE RECORDS SUMMARY | 2024-10-03 15:18 | XMS_ITS | Encounter Summary ---
Author Organization [employer] Address [address] [facility] 7t [place] [address] Care Team Providers Care Boat And Plant Utility Supervisor Name Role Phone Ruby Duong Primary Care Provider [phone] Reason for Visit * Reason Comments Transition Of Care (Tcm) HDF unscheduled . Encounter Details Date Type Department Care Team ([facility] Contact Info) Description 09/16/2024 Patient Outreach [facility] MED & PEDS [address] [place], [place] [phone] Ruby Duong ANP [address] [place] [address] Transition Of Care (Tcm) (HDF unscheduled. ) Social History Tobacco Use Types Packs/Day Years [...] as of this encounter Miscellaneous Notes * Significant Event - Luh Amor - 09/16/2024 10:00 AM EST 09/16/24 0958 Hospital Discharges and Admission for [facility] Type of Visit Hospital Admission Date of Admission/Visit 09/12/24 Date of Discharge 09/15/24 Facility [facility] Diagnosis Brachial plexus disorders Disposition Discharged Home Follow-Up Actions Follow-Up Needed Provider appointment Initial Contact Date 09/16/24 CINTHYA Hernadez placed outbound call to patient for HDF outreach. Patient's name and were confirmed. Patient educated on the importance of follow up with provider following inpatient admission. Patient was admitted for surgery. Patient already has follow up appointment with surgeon. CC will request discharge summary to be scanned into patient's chart. documented in this encounter Plan of Treatment Upcoming Encounters Date Type Department Care Team (Late st Contact Info) Description 12/09/2024 9:45 AM EDT Office Visit [facility] MEDICINE [address] [place] [address] Ruby Duong ANP [address] [place] [address] documented as of this encounter Visit Diagnoses Not on filedocumented in this encounter Care Teams Boat And Plant Utility Supervisor Relationship Specialty Start Date End Date Ruby Duong ANP [address] [place] [address] PCP - General Family Medicine 05/18/23 documented as of this encounter
--- OUTSIDE RECORDS SUMMARY | 2024-10-03 15:18 | XMS_ITS | Encounter Summary ---
Author Organization [employer] Address [address] [facility] 7t [place] [address] Care Team Providers Care Printed Circuit Boards Stripper Etcher Name Role Phone Ruby Duong Primary Care Provider [phone] Encounter Details Date Type Department Care Team ([facility] st Contact Info) Description 06/19/2023 Telephone [facility] MEDICINE [address] [place] [address] Ruby Duong ANP [address] [place] [address] Social History Tobacco Use Types Packs/Day Years Used Date Smoking Tobacco: Never Passive Smoke Exposure: Never Smokeless Tobacco: Never Housing Stability Answer Date Recorded What is [...] off services in your home? No 06/01/2023 Sex and Gender Information Value Date Recorded [...] Description 12/09/2024 9:45 AM EDT Office Visit [facility] MEDICINE [address] [place] [address] Ruby Duong ANP [address] [place] [address] documented as of this encounter Visit Diagnoses Not on filedocumented in this encounter Care Teams Printed Circuit Boards Stripper Etcher Relationship Specialty Start Date End Date Ruby Duong ANP [address] [place] [address] PCP - General Family Medicine 05/18/23 documented as of this encounter
== END 2024-10-03 13:42 | disposition home or self-care (01) ==
LOC: HO.HMGCX 13:41
PROVIDERS: PCP Nurse Practitioner Primary Care; Visit Provider Surgery Vascular Surgery
DX: M79.601 Pain in right arm (principal); G54.0 Brachial plexus disorders
CPT/HCPCS: 93931; 93971

== ENCOUNTER → 2024-10-03 13:43 | Outpatient (BNV) | payer MEDICAID, SELFPAY | PROVIDERS: PCP Nurse Practitioner Primary Care; Visit Provider Radiology Diagnostic Radiology | DX: M79.621 Pain in right upper arm (principal) | CPT/HCPCS: 93931; 93971 ==

== ENCOUNTER 2024-11-12 09:30 | Outpatient (REF) | payer MEDICAID, SELFPAY ==
--- OUTSIDE RECORDS SUMMARY | 2024-11-12 10:32 | XMS_ITS | Encounter Summary ---
Author Organization [email or web address] Address [address] [facility] [address] 7t [place] [address] Care Team Providers Care Group Burner Machine Name Role Phone Ruby Duong Primary Care Provider [phone] Encounter Details Date Type Department Care Team ([facility] st Contact Info) Description 11/10/2024 Orders Only [facility] MEDICINE [address] [place] [address] Ruby Duong ANP [address] [place] [address] Gender dysphoria (Primary Dx) Social History Tobacco Use Types Packs/Day Years [...] AM EDT documented as of this encounter Progress Notes * LENA Osman - 11/10/2024 10:46 AM EDT Check routine labs & estradiol/testosterone prn & q3 mos in 1st year (if needed), plus renal function & LFTs q3 mos for 1st year then every 6-12 mos, A1c/lipids per USPSTF, & prolactin prn should sx of prolactinoma occur. documented in this encounter Plan of Treatment Upcoming Encounters Date Type Department Care Team (Late st Contact Info) Description 12/09/2024 9:45 AM EDT Office Visit [facility] MEDICINE [address] [place] [address] Ruby Duong ANP [address] [place] [address] Scheduled Orders Name Type Priority Associated Diagnoses Orde r Schedule Hepatic Function Panel Lab Routine Gender dysphoria Expected: 11/10/2024 (Approximate), Expires: 11/10/2025 Estradiol Lab Routine Gender dysphoria Expected: 11/10/2024, Expires: 11/10/2025 Testosterone, Free (Dialysis) And Total, MS Lab Routine Gender dysphoria Expected: 11/10/2024 (Approximate), Expires: 11/10/2025 documented as of this encounter Visit Diagnoses Diagnosis Gender dysphoria- Primary documented in this encounter Care Teams Group Burner Machine Relationship Specialty Start Date End Date Ruby Duong ANP [address] [place] [address] PCP - General Family Medicine 05/18/23 documented as of this encounter
--- OUTSIDE RECORDS SUMMARY | 2024-11-12 10:32 | XMS_ITS | Encounter Summary ---
Author Organization [employer] Address [address] [place] [address] 7t [place] [address] Care Team Providers Care Drum Maker Name Role Phone Kartik Cuevas MD Primary Care Provider [phone] Ruby Duong Primary Care Provider [phone] Encounter Details Date Type Department Care Team (Late st Contact Info) Description 02/07/2023 Telephone [facility] [address] [place] [phone] Kartik Cuevas MD [address] [place] [address] Social History Tobacco Use Types Packs/Day Years [...] Description 12/09/2024 9:45 AM EDT Office Visit [facility] [address] [place] [address] Ruby Duong ANP [address] [place] [address] documented as of this encounter Visit Diagnoses Not on filedocumented in this encounter Care Teams Drum Maker Relationship Specialty Start Date End Date Kartik Cuevas MD [address] [place] [address] PCP - General Pediatrics 11/29/18 05/17/23 Ruby Duong ANP [address] [place] [address] PCP - General Family Medicine 05/18/23 documented as of this encounter
--- OUTSIDE RECORDS SUMMARY | 2024-11-12 10:32 | XMS_ITS | Encounter Summary ---
Author Organization [employer] Address [address] [place] [address] 7t [place] [address] Care Team Providers Care Traffic Division Commanding Officer Name Role Phone Kartik Cuevas MD Primary Care Provider [phone] Ruby Duong Primary Care Provider [phone] Reason for Visit * Reason Onset Date Comments Nurse Triage 04/26/2023 Encounter Details Date Type Department Care Team (Late st Contact Info) Description 04/26/2023 Telephone [facility] MEDICINE [address] [place] [address] Kartik Cuevas MD [address] [place] [address] Nurse Triage Social History Tobacco Use Types [...] agrees to try. Pt is offered the [facility] today but, unable to come due to no apts available at this time in [facility]. Advisedto come first thing in the morning [...] Description 12/09/2024 9:45 AM EDT Office Visit [facility] MEDICINE [address] [place] [address] Ruby Duong ANP [address] [place] [address] documented as of this encounter Visit Diagnoses Not on filedocumented in this encounter Care Teams Traffic Division Commanding Officer Relationship Specialty Start Date End Date Kartik Cuevas MD [address] [place] [address] PCP - General Pediatrics 11/29/18 05/17/23 Ruby Duong ANP [address] [place] [address] PCP - General Family Medicine 05/18/23 documented as of this encounter
--- OUTSIDE RECORDS SUMMARY | 2024-11-12 10:32 | XMS_ITS | Encounter Summary ---
Author Organization [employer] Address [address] [facility] 7t [place] [address] Care Team Providers Care Pathology Technician Name Role Phone Ruby Duong Primary Care Provider [phone] Reason for Visit * Reason Onset Date Comments Med Refill 10/30/2024 Encounter Details Date Type Department Care Team ([facility] st Contact Info) Description 10/30/2024 Refill [facility] MEDICINE [address] [place], [place] [phone] Ruby Duong ANP [address] [place] [address] Gender dysphoria Social History Tobacco Use Types Packs/Day Years [...] Description 12/09/2024 9:45 AM EDT Office Visit [facility] MEDICINE [address] [place] [address] Ruby Duong ANP [address] [place] [address] documented as of this encounter Visit Diagnoses Diagnosis Gender dysphoria documented in this encounter Care Teams Pathology Technician Relationship Specialty Start Date End Date Ruyb Duong ANP [address] [place] [address] PCP - General Family Medicine 05/18/23 documented as of this encounter
--- OUTSIDE RECORDS SUMMARY | 2024-11-12 10:32 | XMS_ITS | Encounter Summary ---
Author Organization [employer] Address [address] [facility] 7t [place] [address] Care Team Providers Care Funeral Sales Manager Name Role Phone Ruby Duong Primary Care Provider [phone] Reason for Visit * Reason Onset Date Comments Med Refill 03/22/2024 Encounter Details Date Type Department Care Team ([facility] st Contact Info) Description 03/22/2024 Refill [facility] MEDICINE [address] [place] [address] Ruby Duong ANP [address] [place] [address] Acne vulgaris Social History Tobacco Use Types [...] the past 12 months, has t he [employer], [employer], oil or water company threatened to shut [...] Description 12/09/2024 9:45 AM EDT Office Visit [facility] MEDICINE [address] [place] [address] Ruby Duong ANP [address] [place] [address] documented as of this encounter Visit Diagnoses Diagnosis Acne vulgaris Other acne documented in this encounter Care Teams Funeral Sales Manager Relationship Specialty Start Date End Date Ruby Duong ANP [address] [place] [address] PCP - General Family Medicine 05/18/23 documented as of this encounter
--- OUTSIDE RECORDS SUMMARY | 2024-11-12 10:32 | XMS_ITS | Encounter Summary ---
Author Organization [employer] Address [address] [facility] 7t [place] [address] Care Team Providers Care Chop Saw Operator Name Role Phone Ruby Duong Primary Care Provider [phone] Reason for Visit * Reason Onset Date Comments ER Follow-up 10/17/2023 Encounter Details Date Type Department Care Team ([facility] st Contact Info) Description 10/17/2023 Telephone [facility] MEDICINE [address] [place] [address] Ruby Duong ANP [address] [place] [address] ER Follow-up Social History Tobacco Use Types [...] t he electric, gas, oil or water [employer] threatened to shut off services in your [...] a bad episode of chest pain in [facility] ED in 06/21. He states that his [...] week. He thinks perhaps heshould see a pari mutuel clerk for further evaluation. Patient states that these [...] to Green Team Nursesto search for any [facility] ED records we may be missing from 2022. Patient calling to report ED visit on : Date: 06/21 Hospital: [facility] Seen for: Chest pain Patient advised will forward to team nurse for follow up * Telephone Encounter - Lynne Billingsley Hall - 10/17/2023 3:56 PM EDT Patient calling to report ED visit on : Date: 06/21 Hospital: [facility] Seen for: Chest pain Patient advised will forward to team nurse for follow up documented in this encounter Plan of Treatment Upcoming Encounters Date Type Department Care Team (Late st Contact Info) Description 12/09/2024 9:45 AM EDT Office Visit [facility] MEDICINE [address] [place] [address] Ruby Duong ANP [address] [place] [address] documented as of this encounter Visit Diagnoses Not on filedocumented in this encounter Care Teams Chop Saw Operator Relationship Specialty Start Date End Date Ruby Duong ANP [address] [place] [address] PCP - General Family Medicine 05/18/23 documented as of this encounter
--- OUTSIDE RECORDS SUMMARY | 2024-11-12 10:32 | XMS_ITS | Clinical Summary ---
Author Organization [employer] Address [address] [facility] 7t [place] [address] Care Team Providers Care Auto Driver Name Role Phone Tej Machado LENA Primary Care Provider [phone] Allergies Active Allergy Reactions Criticality Noted Date Comments Amoxicillin Rash Low 10/17/2022 Penicillins Anaphylaxis,Rash High 04/14/2016 Medications benzoyl peroxide (Benzoyl Peroxide Wash) 5 % external washIndications :Acne vulgaris USE IN PLACE OF BODY WASH ON CHEST AND BACK 236 mL 2 04/28/20 24 Active linaCLOtide (Linzess) 72 MCG capsule Take 72 mcg by mouth before breakfast. 02/18/20 24 Active Concerta 27 MG CR tablet Take 27 mg by mouth in the morning. Active ARIPiprazole (Abilify) 5 MG tablet Take 5 mg by mouth Once per day. 06/17/20 24 Active estradiol (Estrace) 2 MG tabletIndicatio ns:Gender dysphoria Take 1 tablet (2 mg) by mouth 2 times daily. 180 tablet 1 08/08/19 25 Active cetirizine (ZyrTEC) 10 MG tabletIndicatio ns:Allergic rhinitis due to animal hair and dander Take 1 tablet (10 mg) by mouth if needed each day for allergies. 90 tablet 08/08/19 25 Active sildenafil (Viagra) 50 MG tabletIndicatio ns:Drug-induced erectile dysfunction Take 1 tablet as needed 30 to 60 minutes before sexual activity 30 tablet 1 10/02/19 25 Active famotidine (Pepcid) 20 MG tabletIndicatio ns:Gastroesopha geal reflux disease, unspecified whether esophagitis present TAKE 1 TABLET BY MOUTH DAILY NEEDED FOR ACID REFLUX 90 tablet 10/30/19 25 Active spironolactone (Aldactone) 50 MG tabletIndicatio ns:Gender dysphoria TAKE 1 TABLET BY MOUTH EVERY DAY 90 tablet 11/07/19 25 Active spironolactone (Aldactone) 50 MG tabletIndicatio ns:Gender dysphoria Take 1 tablet (50 mg) by mouth Once per day. 90 tablet 08/08/19 25 025 Discontinued(Re order (will not trigger notification to Pharmacy)) famotidine (Pepcid) 20 MG tabletIndicatio ns:Gastroesopha geal reflux disease, unspecified whether esophagitis present Take 1 tablet twice daily as needed for acid reflux 60 tablet 08/08/19 25 025 Discontinued(Re order (will not trigger notification to Pharmacy)) famotidine (Pepcid) 20 MG tabletIndicatio ns:Gastroesopha geal reflux disease, unspecified whether esophagitis present TAKE 1 TABLET BY MOUTH TWICE DAILY NEEDED FOR ACID REFLUX 60 tablet 10/28/19 25 025 Discontinued(Re order (will not trigger notification to Pharmacy)) Active Problems Problem Noted Date Diagnosed Date [...] Encounters Date Type Department Care Team Description 11/10/2024 Orders Only [facility] [address] [place] [address] Tej Machado ANP Gender dysphoria (Primary Dx) 11/05/2024 Refill [facility] [address] [place] [address] Tej Machado ANP Gender dysphoria 10/30/2024 Refill [facility] [address] [place] [address] Tej Machado ANP Gender dysphoria 10/28/2024 Refill [facility] [address] [place] [address] Tej Machado ANP Gastroesophageal reflux disease, unspecified whether esophagitis present 10/26/2024 Refill [facility] [address] [place] [address] Tej Machado ANP Gender dysphoria; Allergic rhinitis due to animal hair and dander; Gastroesophageal reflux disease, unspecified whether esophagitis present 10/10/2024 Population Health Risk Score [facility] Department [address] [place] [address] [phone] Provider, Population Health Generic 10/03/2024 Orders Only [facility] External Provider, [facility] 09/16/2024 Patient Outreach [facility] [address] [place] [address] Tej Machado ANP Transition Of Care (Tcm) (HDF unscheduled. ) 09/16/2024 Telephone [facility] [address] [place] [address] Tej Machado ANP Care Management ([facility]- chart review) 09/08/2024 Telephone [facility] [address] [place] [address] Tej Machado ANP Referral from Last 3 Months Immunizations Name Administration [...] Upcoming Encounters Date Type Department Care Team ([facility] st Contact Info) Description 12/09/2024 9:45 AM EDT Office Visit [facility] [address] [place] [address] Tej Machado ANP [address] [place], [place] [phone] Health Maintenance Due Date Last Done Comments [...] Procedure Name Priority Date/Time Associated Diagnosis Comments US ARTERIAL DUPLEX UE RT Routine 10/03/2024 2:03 PM EST VASC US UPPER EXTREMITY VENOUS DUPLEX RIGHT Routine 10/03/2024 1:43 PM EST CHLAMYDIA/N. GONORRHOEAE RNA, TMA, UROGENITAL Routine 09/01/2023 7:22 PM EST HEPATITIS EXPOSURE SOURCE Routine 05/26/2023 2:23 PM EDT HIV ANTIBODY/ANTIGEN ([place] [facility]) Routine 05/26/2023 2:23 PM EDT from Last 3 Months or Most Recently Relevant to Health Maintenance Results * US arterial duplex UE RT (10/03/2024 2:03 PM EST) Anatomical Region Laterality Modality Abdomen Ultrasound 10/03/2024 2:03 PM EST Narrative 10/06/2024 3:41 PM EDT ? [facility] [place] ?[address] ? [place] [address] ? Ultrasound Report ? Signed ? Patient: EdiJorge Lemus ?MR#: [id number] ?? [id number] ? : 2005 ?Acct:[id number] ? Age/Sex: 19 / M ?ADM Date: 10/03/24 ? Loc: HO.HMGCX ? Attending Dr: Mike Cardona MD ? Ordering Physician: Mike Cardona MD ?? Date of Service: 10/03/24 ?? Procedure(s): US arterial duplex UE RT ?? Accession Number(s): [id number] ? cc: Mike Cardona MD; TEJ MACHADO NP ? EXAMINATION: ?? Noninvasive assessment of the right upper extremity with ARTERIAL ?? DUPLEX.). ? CLINICAL INFORMATION: ?? Pain, right upper extremity ? TECHNIQUE: ?? Duplex Doppler techniques with waveform analysis and measurement of ?? velocities in the right subclavian artery, axillary artery, tracheal ?? artery, radial and ulnar arteries. ? COMPARISON: None ? FINDINGS: ? DIRECT DUPLEX DOPPLER FINDINGS: ? RIGHT UPPER EXTREMITY: ?? Subclavian artery: 22 cm/s, phasicity: Triphasic. ?? Axillary artery: 146 cm/s, phasicity: Triphasic ?? Brachial artery (proximal): 92 cm/s, phasicity: Triphasic. ?? Brachial artery (distal): 107 cm/s, phasicity: Triphasic. ?? Radial artery: 41 cm/s, phasicity: Triphasic. ?? Ulnar artery: 32 cm/s, phasicity: Triphasic. ? / arterial duplex UE RT ?? IMPRESSION: ?? Normal patency and triphasic waveforms. ? Electronically signed by: ??Néstor Ortiz MD ??10/06/2024 03:38 PM ?? EDT RP ? Dictated By: ?Néstor Suh MD ? Signed By: ?<Electronically signed by Néstor Dowell MD in OV> ? 10/06/24 1538 ? DD/ 1403 ? TD/TT: 10/03/24 1430 ? Heavy Equipment Sales Associate: ? Procedure Note Tanya, Image - 10/06/2024 [facility] [place] Adult Primary Care [address] [place] [address] [place] [address] Ultrasound Report Signed Patient: Jorge Daley AMR#: [id number] : 2005Acct:[id number] Age/Sex: 19 M Date: 10/03/24 Loc: HO.HMGCX Attending Dr: Mike Cardona MD Ordering Physician: Mike Cardona MD Date of Service: 10/03/24 Procedure(s): US arterial duplex UE RT Accession Number(s): [id number] cc: Mike Cardona MD; TEJ MACHADO NP EXAMINATION: Noninvasive assessment of the right upper extremity with ARTERIAL DUPLEX.). CLINICAL INFORMATION: Pain, right upper extremity TECHNIQUE: Duplex Doppler techniques with waveform analysis and measurement of velocities in the right subclavian artery, axillary artery, tracheal artery, radial and ulnar arteries. COMPARISON: None FINDINGS: DIRECT DUPLEX DOPPLER FINDINGS: RIGHT UPPER EXTREMITY: Subclavian artery: 22 cm/s, phasicity: Triphasic. Axillary artery: 146 cm/s, phasicity: Triphasic Brachial artery (proximal): 92 cm/s, phasicity: Triphasic. Brachial artery (distal): 107 cm/s, phasicity: Triphasic. Radial artery: 41 cm/s, phasicity: Triphasic. Ulnar artery: 32 cm/s, phasicity: Triphasic. US/US arterial duplex UE RT IMPRESSION: Normal patency and triphasic waveforms. Electronically signed by: Néstor Ortiz MD 10/06/2024 03:38 PM EDT RP Dictated By: Néstor Suh MD Signed By: <Electronically signed by Néstor Dowell MDin OV> 10/06/24 1538 DD/ 1403 TD/TT: 10/03/24 1430 Heavy Equipment Sales Associate: us [facility] External Provider IMG US PROCEDURES Final Result * Vascular US upper extremity venous duplex right (10/03/2024 1:43 PM EST) 10/03/2024 1:43 PM EST Narrative [facility] - 10/06/2024 3:36 PM EDT ? [facility] [place] Primary Care ?[address] ? [place] [address] ? Ultrasound Report ? Signed ? Patient: EdiJorge Allan ?MR#: [id number] ?? [id number] ? : 2005 ?Acct:[id number] ? Age/Sex: 19 / M ?ADM Date: 10/03/24 ? Loc: HO.HMGCX ? Attending Dr: Mike Cardona MD ? Ordering Physician: Mike Cardona MD ?? Date of Service: 10/03/24 ?? Procedure(s): US venous duplex UE RT ?? Accession Number(s): [id number] ? cc: Mike Cardona MD; TEJ MACHADO NP ? EXAMINATION: ?? US TRIPLEX UPPER EXTREMITY, RIGHT ? CLINICAL INFORMATION: ?? Pain, right upper extremity. ? COMPARISON: ?? None available. ? TECHNIQUE: ?? Color-flow triplex imaging with spectral analysis and compression ?? Doppler was performed on the right upper extremity. ? FINDINGS: ?? The right internal jugular, subclavian, and axillary veins are patent ?? and free of thrombus. The imaged segment of the right brachiocephalic ?? vein is patent. Spectral doppler waveforms are normal. ? The brachial, basilic, cephalic, radial, and ulnar veins are patent and ?? compressible. ? US/US venous duplex UE RT ?? IMPRESSION: ?? No acute deep venous thrombosis involving the right upper extremity. ?? Negative exam.. ? Electronically signed by: ??Néstor Ortiz MD ??10/06/2024 03:33 PM ?? EDT RP ? Dictated By: ?Néstor Suh MD ? Signed By: ?<Electronically signed by Néstor Dowell MD in OV> ? 10/06/24 1533 ? DD/ 1343 ? TD/TT: 10/03/24 1430 ? Heavy Equipment Sales Associate: ? Procedure Note Jaclyn Martínez - 10/06/2024 [facility] [place] Adult Primary Care [address] [place] [address] [place] [address] Ultrasound Report Signed Patient: Jorge Daley AMR#: [id number] : 2005Acct:[id number] Age/Sex: 19 M Date: 10/03/24 Loc: HO.HMGCX Attending Dr: Mike Cardona MD Ordering Physician: Mike Cardona MD Date of Service: 10/03/24 Procedure(s): US venous duplex UE RT Accession Number(s): [id number] cc: Mike Cardona MD; TEJ MACHADO NP EXAMINATION: US TRIPLEX UPPER EXTREMITY, RIGHT CLINICAL INFORMATION: Pain, right upper extremity. COMPARISON: None available. TECHNIQUE: Color-flow triplex imaging with spectral analysis and compression Doppler was performed on the right upper extremity. FINDINGS: The right internal jugular, subclavian, and axillary veins are patent and free of thrombus. The imaged segment of the right brachiocephalic vein is patent. Spectral doppler waveforms are normal. The brachial, basilic, cephalic, radial, and ulnar veins are patent and compressible. US/US venous duplex UE RT IMPRESSION: No acute deep venous thrombosis involving the right upper extremity. Negative exam.. Electronically signed by: Néstor Ortiz MD 10/06/2024 03:33 PM EDT Dictated By: Néstor Suh MD Signed By: <Electronically signed by Néstor Dowell MDin OV> 10/06/24 1533 DD/ 1343 TD/TT: 10/03/24 1430 Heavy Equipment Sales Associate: [facility] External Provider CV VASC ULAR PROCEDURES Final Result [facility] [address] [place] [address] * Chlamydia/N. Gonorrhoeae RNA, TMA, Urogenitial (09/01/2023 7:22 PM EST) CT PCR NOT DETECTED Not Detect. [facility] Comment:A not detected test result does [...] psychologicalconsequences. NG PCR NOT DETECTED Not Detect. [facility] Comment:A not detected test result does [...] PM EST 09/01/2023 7:26 PM EST Narrative [facility] - 09/02/2023 2:57 AM EST Urine Generic External Data Provider LAB MICROBIOLOGY - GENERAL ORDERABLES Final Result Performing Organization Address [facility] Co de Phone Number [facility] [address] [place] [phone] * Hepatitis Exposure Source (05/26/2023 2:23 PM EDT) ~Hepatitis B Surface Antibody NONREACTIVE Nonreactive [facility] Comment:Nonreactive: < 8.00 mIU/mL Hepatitis B Core Antibody Nonreactive Nonreactive [facility] Hepatitis C Ab NonReactive Nonreactive [facility] Hepatitis B Surface Ag Negative Negative [facility] 05/26/2023 2:23 PM EDT 05/26/2023 2:46 PM EDT [facility] External Provider LAB BLO OD ORDERABLES Final Result Performing Organization Address [facility] Co de Phone Number [facility] [address] [place] [phone] * HIV Ab/Ag ([place] DPH) (05/26/2023 2:23 PM EDT) HIV AB/AG Nonreactive Nonreactive [facility] Comment:HIV-1 p24 Ag and/or HIV-1/HIV-2 Ab not detected.A test result that is nonreactive does not exclude thepossibility of exposure to or infection with HIV-1 and/orHIV-2. Nonreactive results in this assay for individualswith prior exposure to HIV-1 and/or HIV-2 may be due toantigen and antibody levels that are below the limit ofdetection of this assay.The vozero HIV Ag/Ab Combo assay result andsupplemental assay results should be interpreted inconjunction with the patient's clinical presentation,history and other laboratory results. If the results areinconsistent with clinical evidence, additional testing issuggested to confirm the result. 05/26/2023 2:23 PM EDT 05/26/2023 2:46 PM EDT us Generic External Data Provider LAB BLOOD ORDERAB LES Final Result [facility] [address] [place] [phone] from Last 3 Months or Most Recently Relevant to Health Maintenance Insurance [employer] Care Teams Auto Driver Relationship Specialty Start Date End Date Tej Machado ANP [address] [place] [address] PCP - General Family Medicine 05/18/23
--- OUTSIDE RECORDS SUMMARY | 2024-11-12 10:32 | XMS_ITS | Encounter Summary ---
Author Organization [employer] Address [address] [facility] 7t [place] [address] Care Team Providers Care General Laborer Name Role Phone Ruby Duong Primary Care Provider [phone] Encounter Details Date Type Department Care Team ([facility] st Contact Info) Description 06/19/[address] [facility] [address] [place] [address] Ruby Duong ANP [address] [place] [address] Social History Tobacco Use Types Packs/Day Years [...] AM EDT Office Visit [facility] [address] [place] [address] Ruby Duong ANP [address] [place] [address] documented as of this encounter Visit Diagnoses Not on filedocumented in this encounter Care Teams General Laborer Relationship Specialty Start Date End Date Ruby Duong ANP [address] [place] [address] PCP - General Family Medicine 05/18/23 documented as of this encounter
--- OUTSIDE RECORDS SUMMARY | 2024-11-12 10:32 | XMS_ITS | Encounter Summary ---
Author Organization [employer] Address [address] [place] [address] 7t [place] [address] Care Team Providers Care Data Warehousing Manager Name Role Phone Kartik Cuevas MD Primary Care Provider [phone] Ruby Duong Primary Care Provider [phone] Reason for Visit * Reason Onset Date Comments Other 02/07/2023 Encounter Details Date Type Department Care Team ([facility] st Contact Info) Description 02/07/2023 Telephone [facility] [address] [place] [address] Kartik Cuevas MD [address] [place], [place] [phone] Other Social History Tobacco Use Types Packs/Day [...] 3:27 PM EDT Tc from Sh[facility] at [facility] requesting a medical necessity letter from PCP for patient toget wisdom teeth extracted under general anesthesia. Patient has severe dental anxiety and sedationin office has not worked in the past. This letter is needed for medical insurance to approve it. Any further questions please call [phone] and fax number [phone]. documented in this encounter Plan of Treatment Upcoming Encounters Date Type Department Care Team (Late st Contact Info) Description 12/09/2024 9:45 AM EDT Office Visit [facility] [address] [place], [place] [phone] Ruby Duong ANP [address] [place] [address] documented as of this encounter Visit Diagnoses Not on filedocumented in this encounter Care Teams Data Warehousing Manager Relationship Specialty Start Date End Date Kartik Cuevas MD [address] [place] [phone] PCP - General Pediatrics 11/29/18 05/17/23 Ruby Duong ANP [address] [place] [address] PCP - General Family Medicine 05/18/23 documented as of this encounter
--- OUTSIDE RECORDS SUMMARY | 2024-11-12 10:32 | XMS_ITS | Encounter Summary ---
Author Organization [employer] Address [address] [facility] 7t [place] [address] Care Team Providers Care Dental Equipment Mechanic Name Role Phone Ruby Duong Primary Care Provider [phone] Reason for Visit * Reason Onset Date Comments Med Refill 01/05/2024 Encounter Details Date Type Department Care Team ([facility] st Contact Info) Description 01/05/2024 Refill [facility] [address] [place] [address] Ruby Duong ANP [address] [place] [address] Acne vulgaris Social History Tobacco Use Types [...] the past 12 months, has t he [employer], [employer], oil or water company threatened to shut [...] Description 12/09/2024 9:45 AM EDT Office Visit [facility] [address] [place] [phone] Ruby Duong ANP [address] [place] [phone] documented as of this encounter Visit Diagnoses Diagnosis Acne vulgaris Other acne documented in this encounter Care Teams Dental Equipment Mechanic Relationship Specialty Start Date End Date Ruby Duong ANP [address] [place] [phone] PCP - General Family Medicine 05/18/23 documented as of this encounter
[2024-11-12 11:57] LABS: Alanine Aminotransferase 24 U/L (0-40); Albumin Level 4.5 g/dL (3.5-5.0); Alkaline Phosphatase 111 U/L (39-117); Aspartate Amino Transferase 29 U/L (5-37); Bilirubin Direct 0.2 mg/dL (0.0-0.5); Bilirubin Total 0.6 mg/dL (0.0-1.0); Total Protein 6.8 g/dL (6.5-8.0)
[2024-11-17 16:43] LABS: Testosterone, Free 37.2 pg/mL (35.0-155.0); Testosterone, Total 362 ng/dL (250-1100)
[2024-11-26 02:19] LABS: Estradiol Ultra Sensitive 267 pg/mL (< OR = 29)
== END 2024-11-12 09:31 | disposition home or self-care (01) ==
LOC: HO.HHCL 09:30
PROVIDERS: Visit Provider Nurse Practitioner Primary Care
DX: F64.9 Gender identity disorder, unspecified (principal)
CPT/HCPCS: 36415; 80076; 82670; 84402; 84403

== ENCOUNTER 2024-12-08 09:45 | Outpatient (RCR) | payer MEDICAID, SELFPAY | END 2025-07-15 08:42 | disposition home or self-care (01) | LOC: HO.PT 09:45 | PROVIDERS: PCP Nurse Practitioner Primary Care; Visit Provider Surgery Vascular Surgery | DX: Z78.9 Other specified health status (principal) | CPT/HCPCS: 97110; 97161; 97530 ==

== ENCOUNTER 2025-07-14 11:54 | Outpatient (REF) | payer MEDICAID, SELFPAY ==
--- OUTSIDE RECORDS SUMMARY | 2025-07-14 15:45 | XMS_ITS | Encounter Summary ---
Author Organization [employer] Address [address] [facility] 7t [place] [address] Care Team Providers Care Brim Stretcher Name Role Phone Ruby Duong Primary Care Provider [phone] Reason for Visit * Reason Onset Date Comments Med Refill 02/09/2025 Encounter Details Date Type Department Care Team ([facility] st Contact Info) Description 02/09/2025 Refill [facility] [address] [place] [address] Ruby Duong ANP [address] [place] [address] Gender dysphoria Social History Tobacco Use Types [...] more drinks on one occasion? 0 06/16/2024 Depression Answer Date Recorded Patient Health Questionnaire-9 Score 11 12/09/2024 Patient Health Questionnaire-9 Score 11 12/09/2024 Last PHQ-9: Questionnaire Data Not on file 0 12/09/2024 Housing Stability Answer Date Recorded What is your housing situation today? I have james aguayo 12/02/[address] you li ve. Do you have problems with any of the following? None of the above 12/02/2024 Food Insecurity Answer Date Recorded Within the past 12 months, y ou worried that your food would run out before you got money to buy more: Never True 12/02/2024 Within the past 12 months,th e food you bought just didn't last and you didn't have enough money to get more: Never True 12/2024 Transportation Answer Date Recorded In the past 12 months, has l ack of transportation kept you from medical appts, meetings, work or from getting things needed for daily living? No 12/02/2024 Utilities Answer Date Recorded In the past 12 months, has t he electric, gas, oil or water company threatened to shut off services in your home? No 12/02/2024 Depression Answer Date Recorded Patient Health Questionnaire-2 Score 2 12/09/2024 Internet Access Answer Date Recorded Internet Access [...] Care Team (Late st Contact Info) Description 08/04/2025 10:15 AM EST Office Visit [facility] [address] [place] [address] Ruby Duong ANP [address] [place] [address] documented as of this encounter Visit Diagnoses Diagnosis Gender dysphoria documented in this encounter Additional Health Concerns Assessment Noted Time PHQ-9 Depression Total Score: 11 025 9:48 AM EDT documented as of this encounter Care Teams Brim Stretcher Relationship Specialty Start Date End Date Ruby Duong ANP [address] [place] [phone] PCP - General Family Medicine 05/18/23 documented as of this encounter
--- OUTSIDE RECORDS SUMMARY | 2025-07-14 15:45 | XMS_ITS | Encounter Summary ---
Author Organization [employer] Address [address] [facility] 7t [place] [address] Care Team Providers Care Vice President Industrial Relations Name Role Phone Kartik Cuevas MD Primary Care Provider [phone] Ruby Duong Primary Care Provider [phone] Reason for Visit * Reason Onset Date Comments Nurse Triage 04/26/2023 Encounter Details Date Type Department Care Team ([facility] st Contact Info) Description 04/26/2023 Telephone [facility] [address] [place] [address] Kartik Cuevas MD [address] [place] [address] Nurse Triage Social History Tobacco Use Types [...] agrees to try. Pt is offered the [facility] today but, unable to come due to no apts available at this time in [facility]. Advisedto come first thing in the [...] Description 08/04/2025 10:15 AM EST Office Visit [facility] [address] [place] [address] Ruby Duong ANP [address] [place] [phone] documented as of this encounter Visit Diagnoses Not on filedocumented in this encounter Care Teams Vice President Industrial Relations Relationship Specialty Start Date End Date Kartik Cuevas MD [address] [place] [phone] PCP - General Pediatrics 11/29/18 05/17/23 Ruby Duong ANP [address] [place] [phone] PCP - General Family Medicine 05/18/23 documented as of this encounter
--- OUTSIDE RECORDS SUMMARY | 2025-07-14 15:45 | XMS_ITS | Encounter Summary ---
Author Organization [employer] Address [address] [facility] 7t [place] [address] Care Team Providers Care Book Reviewer Name Role Phone Ruby Duong Primary Care Provider [phone] Reason for Visit * Reason Onset Date Comments Med Refill 03/22/2024 Encounter Details Date Type Department Care Team ([facility] st Contact Info) Description 03/22/2024 Refill [facility] [address] [place] [address] Ruby Duong ANP [address] [place] [address] Acne vulgaris Social History Tobacco Use Types [...] Description 08/04/2025 10:15 AM EST Office Visit [facility] [address] [place] [phone] Ruby Duong ANP [address] [place] [phone] documented as of this encounter Visit Diagnoses Diagnosis Acne vulgaris Other acne documented in this encounter Care Teams Book Reviewer Relationship Specialty Start Date End Date Ruby Duong ANP [address] [place] [phone] PCP - General Family Medicine 05/18/23 documented as of this encounter
--- OUTSIDE RECORDS SUMMARY | 2025-07-14 15:45 | XMS_ITS | Encounter Summary ---
Author Organization [employer] Address [address] [facility] 7t [place] [address] Care Team Providers Care Mobile Security Specialist Name Role Phone Ruby Duong Primary Care Provider [phone] Reason for Visit * Reason Onset Date Comments ER Follow-up 10/17/2023 Encounter Details Date Type Department Care Team ([facility] st Contact Info) Description 10/17/2023 Telephone [facility] MEDICINE [address] [place] [address] Ruby Duong ANP [address] [place] [address] ER Follow-up Social History Tobacco Use Types [...] the past 12 months, has t he [employer], [employer], oil or water [employer] threatened to shut off services in your [...] a bad episode of chest pain in [facility] ED in 06/21. He states that his [...] week. He thinks perhaps heshould see a process treater for further evaluation. Patient states that these [...] to Green Team Nursesto search for any [facility] ED records we may be missing from 2022. Patient calling to report ED visit on : Date: 06/21 Hospital: [facility] Seen for: Chest pain Patient advised will forward to team nurse for follow up * Telephone Encounter - Lynne Hall - 10/17/2023 3:56 PM EDT Patient calling to report ED visit on : Date: 06/21 Hospital: [facility] Seen for: Chest pain Patient advised will forward to team nurse for follow up documented in this encounter Plan of Treatment Upcoming Encounters Date Type Department Care Team (Late st Contact Info) Description 08/04/2025 10:15 AM EST Office Visit [facility] MEDICINE [address] [place] [phone] Ruby Duong ANP [address] [place] [phone] documented as of this encounter Visit Diagnoses Not on filedocumented in this encounter Care Teams Mobile Security Specialist Relationship Specialty Start Date End Date Ruby Duong ANP [address] [place] [phone] PCP - General Family Medicine 05/18/23 documented as of this encounter
--- OUTSIDE RECORDS SUMMARY | 2025-07-14 15:45 | XMS_ITS | Encounter Summary ---
Author Organization [employer] Address [address] [facility] 7t [place] [address] Care Team Providers Care Control Chemist Name Role Phone Ruby Duong Primary Care Provider [phone] Encounter Details Date Type Department Care Team ([facility] st Contact Info) Description 07/13/2025 Orders Only [facility] MEDICINE [address] [place] [address] Ruby Duong ANP [address] [place] [address] Social History Tobacco Use Types Packs/Day Years [...] Description 08/04/2025 10:15 AM EST Office Visit [facility] MEDICINE [address] [place] [phone] Ruby Duong ANP [address] [place] [address] documented as of this encounter Visit Diagnoses Not on filedocumented in this encounter Additional Health Concerns Assessment Noted Time PHQ-9 Depression Total Score: 11 025 9:48 AM EDT documented as of this encounter Care Teams Control Chemist Relationship Specialty Start Date End Date Ruby Duong ANP [address] [place] [phone] PCP - General Family Medicine 05/18/23 documented as of this encounter
--- OUTSIDE RECORDS SUMMARY | 2025-07-14 15:45 | XMS_ITS | Encounter Summary ---
Author Organization [employer] Address [address] [place] [address] 7t [place] [address] Care Team Providers Care Tool And Die Maker Level Five Name Role Phone Kartik Cuevas MD Primary Care Provider [phone] Ruby Duong Primary Care Provider [phone] Reason for Visit * Reason Onset Date Comments Other 02/07/2023 Encounter Details Date Type Department Care Team ([facility] st Contact Info) Description 02/07/2023 Telephone [facility] MEDICINE [address] [place] [address] Kartik Cuevas MD [address] [place] [address] Other Social History Tobacco Use Types Packs/Day [...] Letter done. * Telephone Encounter - Elizabeth Fairchild 02/07/2023 3:27 PM EDT Tc from [place] at [facility] requesting a medical necessity letter from PCP for patient toget wisdom teeth extracted under general anesthesia. Patient has severe dental anxiety and sedationin office has not worked in the past. This letter is needed for medical insurance to approve it. Any further questions please call [phone] and fax number [phone]. documented in this encounter Plan of Treatment Upcoming Encounters Date Type Department Care Team (Late st Contact Info) Description 08/04/2025 10:15 AM EST Office Visit [facility] [address] [place] [address] [phone] Ruby Duong ANP [address] [place] [address] documented as of this encounter Visit Diagnoses Not on filedocumented in this encounter Care Teams Tool And Die Maker Level Five Relationship Specialty Start Date End Date Kartik Cuevas MD [address] [place] [phone] PCP - General Pediatrics 11/29/18 05/17/23 Ruby Duong ANP [address] [place] [address] PCP - General Family Medicine 05/18/23 documented as of this encounter
--- OUTSIDE RECORDS SUMMARY | 2025-07-14 15:45 | XMS_ITS | Encounter Summary ---
Author Organization [facility] Address [address] [place] [address] [place] [phone] Phone Care Team Providers Care Security Installation Technician Name Role Phone Ruby Duong NP Primary Care Provider [phone] Encounter Details Date Type Department Care Team (Late st Contact Info) Description 02/03/2025 Procedure Pass [facility], Ct Scan - [address] [address] Social History Tobacco Use Types Packs/Day Years Used Date Smoking Tobacco: Never Passive Smoke Exposure: Never Smokeless Tobacco: Never Alcohol Use Standard Drinks/Week Comments Yes 1 (1 standard drink = 0.6 oz pur e alcohol) Home Health Assessment: Transportation Answer Date Recorded Lack of Transportation (Medical) No 01/28/2025 Lack of Transportation (Non-Medical) No 01/28/2025 Patient Unable or Declines to Respond No 01/28/2025 Education Answer Date Recorded Are you interested in more education? Not on abhishek e 11/24/2022 Are you concerned about learning? Not on file 11/24/2022 No 11/24/2022 No 11/24/2022 Food Answer Date Recorded Within the past 6 months we worried whether our food would run out before we got money to buy more. Never True 02/03/2025 Within the past 6 months the food we bought just didn't last and we didn't have enough money to get more. Never True Residential Stability Answer Date Recor ded What is your housing situation today? I have james sing 02/03/2025 How many times have you moved in the past 12 sun ths? One time 02/03/2025 Paying for Meds Answer Date Recorded Do you have trouble paying for medicines? No 02/03/2025 Paying Utility Bills Answer Date Record ed Do you have trouble paying your heating or elect ricity bill? No 02/03/2025 Transportation Answer Date Recorded Has the lack of transportati on kept you from medical appointments or from getting medications? No 02/03/2025 Digital Access Answer Date Recorded No 02/03/2025 Yes 02/03/2025 Do you have reliable internet access at home? Ye s 02/03/2025 Do you have a device (e.g., phone, tablet, computer) with a working camera? Yes 02/03/2025 Intimate Partner Violence Answer Date R ecorded Are you denied basic needs s uch as food, clothing, or medical care? No 02/02/2025 In the past 12 months have y ou been in a relationship with a person who hurts, threatens, or tries to control you? No 02/02/2025 Are you denied basic needs s uch as food, clothing, or medical care? No 02/02/2025 In the past 12 months have y ou been in a relationship with a person who hurts, threatens, or tries to control you? No 02/02/2025 Sex and Gender Information Value Date Recorded Sex Assigned at Male 01/18/2024 4:29 PM EDT Legal Sex Male 8:44 PM EDT Gender Identity Female 06/09/2024 5:26 PM EST Sexual Orientation Bisexual 01/18/2024 4: 29 PM EDT documented as of this encounter Plan of Treatment Not on file documented as of this encounter Visit Diagnoses Not on filedocumented in this encounter Care Teams Security Installation Technician Relationship Specialty Start Date End Date Ruby Duong NP [address] [place] [address] PCP - General Nurse Practitioner 01/18/24 documented as of this encounter Additional Source Comments The information contained in this document represents components of the legal health record. It is not the complete legal health record.[facility]
--- OUTSIDE RECORDS SUMMARY | 2025-07-14 15:45 | XMS_ITS | Clinical Summary ---
Author Organization [facility] Address [address] [address] Phone Care Team Providers Care Pump Machine Operator Name Role Phone Ruby Duong NP Primary Care Provider Allergies Active Allergy Reactions Criticality Noted Date Comments Amoxicillin Rash Low 06/30/2017 Penicillins Anaphylaxis,Rash High 04/14/2016 Medications * This document contains information received from the source organization and may not represent a complete record from that organization. ARIPiprazole (ABILIFY) 5 MG tablet Take 1 tablet (5 mg total) by mouth daily. 14 tablet 4 Active cetirizine (ZYRTEC) 10 MG tablet Take 10 mg by mouth daily. 5 Active estradioL (ESTRACE) 2 MG tablet Take 2 mg by mouth 2 (two) times a day. Active famotidine (PEPCID) 20 MG tablet Take 20 mg by mouth daily. Active spironolactone (ALDACTONE) 50 MG tablet Take 50 mg by mouth daily. Active sertraline (ZOLOFT) 50 MG tablet Take 50 mg by mouth daily. 4 Active sertraline (ZOLOFT) 100 MG tablet Take 100 mg by mouth daily. Active CONCERTA 36 mg ER tablet Take 1 tablet by mouth every morning. 5 Active progesterone (PROMETRIUM) 100 mg capsule Take 100 mg by mouth daily. Active ondansetron (ZOFRAN-ODT) 4 MG disintegrating tabletIndications:N eurogenic thoracic outlet syndrome Take 1 tablet (4 mg total) by mouth every 8 (eight) hours as needed for nausea. 21 tablet 5 Active oxyCODONE 5 MG immediate release tabletIndications:N eurogenic thoracic outlet syndrome Take 1 tablet (5 mg total) by mouth every 4 (four) hours as needed for pain (specific location in comments) (surgical site). Partial fill ok 10 tablet 5 Active morphine (MSIR) 15 MG tablet Take 1 tablet (15 mg total) by mouth every 6 (six) hours as needed for pain (specific location in comments). Partial fill ok 12 tablet 5 Active gabapentin (NEURONTIN) 100 MG capsule Take 1 capsule (100 mg total) by mouth 3 (three) times a day as needed (neuropathic pain). 21 capsule 5 Active Active Problems Problem Noted Date Diagnosed Date TOS (thoracic outlet syndrome) 01/23/2025 Thoracic outlet syndrome 09/12/2024 Severe major depression 06/10/2024 Depression with suicidal ideation 06/09/2024 Neurogenic thoracic outlet syndrome 04/01/2024 Assessment & Plan (05/09/2024 9:39 AM EDT): I agree with Dr. Cardona this is classic TOS. His history, symptoms, exam and imaging are all consistent. I don't see evidence of cubital tunnel syndrome requiring surgery Will plan first and cervical rib resection. Encounters Date Type Department Care Team Description 06/05/2025 10:00 AM EST Office Visit [facility] Vascular Surgery [address] [place] [address] Mike Cardona MD Thoracic outlet syndrome (Primary Dx) 06/05/2025 8:42 AM EST - 06/05/2025 11:59 PM EST Hospital Encounter [facility] Vascular Lab [address] [place] [address] Mike Cardona MD Discharge Disposition: Home or Self Care 06/05/2025 8:42 AM EST - 06/05/2025 11:59 PM [facility] Hospital Encounter [facility] Vascular Lab [address] [place] [address] Mike Cardona MD Discharge Disposition: Home or Self Care from Last 3 Months Immunizations Immunization Administration Dates Next Due COVID-19 (Pre-05/21) Pfizer Vaccine, mRNA, PF ,11/23/2020 Social History Tobacco Use Types Packs/Day Years Used Date Smoking Tobacco: Never Passive Smoke Exposure: Never Smokeless Tobacco: Never Tobacco Cessation:Counseling Given: No Alcohol Use Standard Drinks/Week Comments Yes 1 (1 standard drink = 0.6 oz pur e alcohol) Home Health Assessment: Transportation Answer Date Recorded Lack of Transportation (Medical) No 02/09/2025 Lack of Transportation (Non-Medical) No 02/09/2025 Patient Unable or Declines to Respond No 02/09/2025 Education Answer Date Recorded Are you interested [...] have you moved in the past 12 mon ths? One time 02/03/2025 Paying for Meds [...] Orientation Bisexual 01/18/2024 4: 29 PM EDT Last Filed Vital Signs Vital Sign Reading Time Taken Comments Blood Pressure 118/80 02/05/2025 11:30 AM EDT Pulse 96 02/05/2025 11:30 AM EDT Temperature 37.2 C (98.9 F) 02/05/2025 11:30 AM EDT Respiratory Rate 20 02/05/2025 11:30 AM EDT Oxygen Saturation 98% 02/05/2025 11:30 AM EDT Inhaled Oxygen Concentration 100% 01/23/2025 3 :44 PM EDT Weight 72.6 kg (160 lb) 02/02/2025 10:43 PM EDT Height 170.2 cm (5' 7 ) 02/02/2025 10:43 PM EDT Body Mass Index 25.06 02/02/2025 10:43 PM EDT Plan of Treatment Health Maintenance Due Date Last Done Comments DEPRESSION SCREENING 2016 MENINGOCOCCAL VACCINES (B) (1 of 2 - Standard) 2020 HEPATITIS C SCREENING 01/18/2022 HIV ONE-TIME SCREENING (18-65 YEARS) 01/18/2022 COVID-19 VACCINE ( season) 2025 04/21/2024, 05/28/2023, 10/22/2021, Additional history exists POTASSIUM LEVEL 02/03/2026 02/03/2025, 12/29, 01/24/2025, Additional history exists SMOKING Hx and SMOKELESS TOBACCO SCREENING 06/05/2026 06/05/2025 Adult Td,Tdap Booster 02/05/2035 02/05/2025, 016 COMBINED DTaP,Tdap,Td (7 - Td or Tdap) 02/05/2035 02/05/2025, 03/30/2016, 06/19/2005, Additional history exists HIB VACCINES Aged Out 2004, 04/30, 2004 No longer eligible based on patient's age to complete this topic PNEUMOCOCCAL VACCINES (0-49 years) Completed 06/02/2005, 2004, 2004, Additional history exists MMR VACCINES Completed 02/18/2013, 2005 HEPATITIS A VACCINES Completed 05/24/2017, 03/30/20 16 HPV VACCINES Completed 05/24/2017, 03/30/2016 MENINGOCOCCAL VACCINES (ACWY) Completed 10/01/2020, 04/14/2016 ADOLESCENT UNIVERSAL LIPID SCREENING Completed 06/11/2024 INFLUENZA VACCINE Completed 04/27/2025, , 05/28/2023, Additional history exists Medical Devices Implanted Type Area Glass Products Inspector Device Identifier Shelf Expiration Date Model / Serial / Lot Sponge Ultrafoam 8cmx12.5 3mm 1/8in 5 Media Hemostat Surgical [employer] Collagen Microfibrillar Bx/6 - [id number] Implanted:Qty: 1 on 09/12/2024 by Mike Cardona MD at [facility] Right: Spine Cervical [employer] 02/23/2027 [id number] / / [id number] Procedures Procedure Name Priority Date/Time Associated Diagnosis Comments US UPPER EXTREMITY ARTERIES DUPLEX COMPLETE (BILATERAL) Routine 06/05/2025 9:54 AM EST Thoracic outlet syndrome Left arm pain Right arm pain Neurogenic thoracic outlet syndrome US UPPER EXTREMITY VEINS DUPLEX COMPLETE (BILATERAL) Routine 06/05/2025 9:44 AM EST Thoracic outlet syndrome Left arm pain Right arm pain Neurogenic thoracic outlet syndrome BASIC METABOLIC PANEL (BMP) STAT 02/03/2025 3:54 AM EDT LIPID PANEL Routine 06/11/2024 6:59 AM EST from Last 3 Months or Most Recently Relevant to Health Maintenance Results * US Upper Extremity Arteries Duplex Complete (Bilateral) (06/05/2025 9:54 AM EST) Anatomical Region Laterality Modality Ultrasound Narrative 06/05/2025 10:21 AM EST No evidence of arterial thoracic outlet syndrome in the right and left upper extremities. Upper Extremity Doppler Left SUBCLAVIAN ARTERY ; (Left Upper Extremity) --Neutral Position-- 124 - Proximal Subclavian Artery 153 - Mid Subclavian Artery 135 - Distal Subclavian Artery 114 - Axillary Artery --Adson's Maneuver- 133 - Proximal Subclavian Artery 159 - Mid Subclavian Artery 135 - Distal Subclavian Artery 116 - Axillary Artery There is normal Doppler waveform profile in the left subclavian and left axillary arteries with the arm in the neutral position, and with the dynamic provocative maneuvers. Upper Extremity Doppler Right SUBCLAVIAN ARTERY ; (Right Upper Extremity) --Neutral Position-- 153 - Proximal Subclavian Artery 124 - Mid Subclavian Artery 146 - Distal Subclavian Artery 155 - Axillary Artery --Adson's Maneuver-- 141 - Proximal Subclavian Artery 120 - Mid Subclavian Artery 151 - Distal Subclavian Artery 162 - Axillary Artery There is normal Doppler waveform profile in the right subclavian and right axillary arteries with the arm in the neutral position, and with the dynamic provocative maneuvers. Introductory Comments A Duplex ultrasound with color and Spectral Doppler examination is performed to rule out thoracic outlet functional compression (impingement) of the right and left subclavian, axillary arteries (arterial TOS). The subclavian, axillary arteries are evaluated with the arm in the neutral resting position and with the dynamic provocative maneuvers. The velocities are measured in cm/s. NOTE -The arm dynamic provocative maneuver is Adson's maneuver (hyper abduction of the arm to 180 degree). Comparison : Duplex on 05/02/24 S/p bilateral first rib resection us Mike Cardona MD CV US VASCULAR Final R esult * US Upper Extremity Veins Duplex Complete (Bilateral) (06/05/2025 9:44 AM EST) Anatomical Region Laterality Modality Ultrasound Narrative 06/05/2025 10:18 AM EST No deep venous thrombosis in the right and left upper extremity. No evidence of venous thoracic outlet syndrome in the right and left upper extremities. Upper Venous Left INTERNAL JUGULAR normal compressibility and flow characteristics SUBCLAVIAN normal flow characteristics; -There is normal Doppler pulsatile waveforms and color flow in the Left subclavian vein with Left arm in neutral arm position, and with Adson's maneuver. AXILLARY normal compressibility and flow characteristics; - There is normal Doppler pulsatile waveforms and color flow in the Left axillary vein with left arm in neutral arm position, and with Adson's Maneuver BRACHIAL Compressibility: normal CEPHALIC Compressibility: normal BASILIC Compressibility: normal Upper Venous Right INTERNAL JUGULAR normal compressibility and flow characteristics SUBCLAVIAN normal flow characteristics; -There is normal Doppler phasic waveforms and color flow in the right subclavian vein with right arm in neutral arm position, and with Adson's maneuver. AXILLARY normal compressibility and flow characteristics; - There is normal Doppler phasic waveforms and color flow in the right axillary vein with right arm in neutral arm position, and with Adson's maneuver. BRACHIAL Compressibility: normal CEPHALIC Compressibility: normal BASILIC Compressibility: normal Introductory Comments A venous color duplex ultrasound was performed for the right and left subclavian and axillary veins to rule out thoracic outlet functional compression (impingement) i.e (VenousTOS) with the arm in the neutral position and with the provocative dynamic maneuvers of the arm (Adson's Maneuver). Comparison: Duplex on 05/02/24 S/p bilateral first ribs resection on 09/12/24. 01/23/25 Mike Cardona MD US VASCULAR Final R esult * (ABNORMAL) Basic metabolic panel (02/03/2025 3:54 AM EDT) SODIUM 138 133 - 146 mmol/L [facility] CHLORIDE 104 96 - 108 mmol/L [facility] POTASSIUM 4.0 3.3 - 5.1 mmol/L [facility] CO2 23 21 - 35 mmol/L [facility] BUN 26(H) 6 - 19 mg/dL [facility] CREATININE 0.70 0.5 - 1.5 mg/dL [facility] GLUCOSE 90 70 - 99 mg/dL [facility] CALCIUM 8.9 8.4 - 10.3 mg/dL [facility] EGFR >120 >59 mL/min/1.7 3m2 [facility] Comment:Estimated glomerular filtration rate calculated using the CKD-EPI refit equation. ANION GAP 15 10 - 20 mmol/L [facility] Blood 02/03/2025 3:54 AM EDT 02/03/2025 4:08 AM EDT us Azar Aleman DO LAB BLOOD BKR ORDERABLES Maxine l Result Performing Organization Address City/[facility]/ZIP Co de Phone Number [address] [address] * (ABNORMAL) Lipid panel (06/11/2024 6:59 AM EST) HDL 57 mg/dL [facility] Comment: Interpretation <40 mg/dL: Low HDL cholesterol (major risk factor for CHD) Greater than or equal to 60 mg/dL: High HDL cholesterol ( negative risk factor for CHD) HDL - cholesterol is affected by a number of factors, e.g. smoking, excerise, hormones, sex and age. CHOLESTEROL 166 0 - 240 mg/dL [facility] TRIGLYCERIDES 96 30 - 160 mg/dL [facility] LDL 90 50 - 129 mg/dL [facility] Comment: LDL levels in terms of risk for coronary heart disease: <100 mg/dL: Optimal 100-129 mg/dL: Near or above optimal 130-159 mg/dL: Borderline high 160-189 mg/dL: High >190 mg/dL: Very High CARDIAC RISK RATIO 2.9(L) 3.4 - 5.0 C [facility] Blood 06/11/2024 6:59 AM EST 06/11/2024 7:10 AM EST us Izzy Bellamy MD LAB BLOOD BKR ORDERABLE S Final Result Performing Organization Address [facility]/ZIP Co de Phone Number [address] [address] from Last 3 Months or Most Recently Relevant to Health Maintenance Insurance [facility] [employer] [facility] PPO EPO [facility] [employer] [facility] [place] [place] [address] [place] [address] [employer] [facility] [place] [address] [place] [address] [employer] [facility] [place] [address] [address] [employer] [facility] PPO EPO [facility] [employer] [facility] PPO EPO Advance Directives For more information, please contact: [phone] (9AM - 5PM [facility], Sunday-Sunday) * Full Code (Latest Code Status on File) Date Activated Date Inactivated Comments 01/23/2025 8:03 PM Question Answer Comments Code Status Confirmed With: Patient * Full Code Date Activated Date Inactivated Comments 09/12/2024 4:53 PM 01/23/2025 8:03 PM Question Answer Comments Code Status Confirmed With: Patient * Full Code Date Activated Date Inactivated Comments 06/10/2024 1:53 PM 09/12/2024 4:53 PM Question Answer Comments Code Status Confirmed With: Patient Care Teams Pump Machine Operator Relationship Specialty Start Date End Date Ruby Duong NP [address] [place] [phone] PCP - General Nurse Practitioner 01/18/24 Additional Source Comments The information contained in this document represents components of the legal health record. It is not the complete legal health record.[facility]
--- OUTSIDE RECORDS SUMMARY | 2025-07-14 15:45 | XMS_ITS | Encounter Summary ---
Author Organization [facility] Address [address] [place] [address] Phone Care Team Providers Care Sailmaker Name Role Phone Ruby Duong NP Primary Care Provider [phone] Encounter Details Date Type Department Care Team (Late st Contact Info) Description 01/23/2025 Procedure Pass [facility] Periop [address] [place] [address] Social History Tobacco Use Types Packs/Day Years Used Date Smoking Tobacco: Never Passive Smoke Exposure: Never Smokeless Tobacco: Never Alcohol Use Standard Drinks/Week Comments Yes 1 (1 standard drink = 0.6 oz pur e alcohol) Education Answer Date Recorded Are you interested in more education? Not on abhishek e 11/24/2022 Are you concerned about learning? Not on file 11/24/2022 No 11/24/2022 No 11/24/2022 Food Answer Date Recorded Within the past 6 months we worried whether our food would run out before we got money to buy more. Never True 01/23/2025 Within the past 6 months the food we bought just didn't last and we didn't have enough money to get more. Never True Residential Stability Answer Date Recor ded What is your housing situation today? I have james sing 01/23/2025 How many times have you move d in the past 12 months? Zero (I did not move) 01/23/2025 Paying for Meds Answer Date Recorded Do you have trouble paying for medicines? No 01/23/2025 Paying Utility Bills Answer Date Record ed Do you have trouble paying your heating or elect ricity bill? No 01/23/2025 Transportation Answer Date Recorded Has the lack of transportati on kept you from medical appointments or from getting medications? No 01/23/2025 Digital Access Answer Date Recorded No 01/23/2025 Yes 01/23/2025 Do you have reliable internet access at home? Ye s 01/23/2025 Do you have a device (e.g., phone, tablet, computer) with a working camera? Yes 01/23/2025 Intimate Partner Violence Answer Date R ecorded Are you denied basic needs s uch as food, clothing, or medical care? No 01/25/2025 In the past 12 months have y ou been in a relationship with a person who hurts, threatens, or tries to control you? No 01/25/2025 Are you denied basic needs s uch as food, clothing, or medical care? No 01/25/2025 In the past 12 months have y ou been in a relationship with a person who hurts, threatens, or tries to control you? No 01/25/2025 Sex and Gender Information Value Date Recorded Sex Assigned at Male 01/18/2024 4:29 PM EDT Legal Sex Male 8:44 PM EDT Gender Identity Female 06/09/2024 5:26 PM EST Sexual Orientation Bisexual 01/18/2024 4: 29 PM EDT documented as of this encounter Functional Status * Calculated C-SSRS Risk Score (Lifetime/Recent) Answer Date of Assessment Author No Risk Indicated 01/25/2025 9:30 PM EDT Nu Lassiter RN * [place] Suicide Severity Rating Scale (Screener/Recent Self-Report) Question Answer Date of Assessment Author 1. Wish to be (Past 1 Month) No 025 9:30 PM EDT Nu Lassiter RN 2. Non-Specific Active Suici estefania Thoughts (Past 1 Month) No 01/25/2025 9:30 PM EDT Nu Lassiter RN 6. Suicidal Behavior (Lifetime) No 9:30 PM EDT Nu Lassiter RN documented as of this encounter Plan of Treatment Not on file documented as of this encounter Visit Diagnoses Not on filedocumented in this encounter Care Teams Sailmaker Relationship Specialty Start Date End Date Ruby Duong NP [address] [place] [address] PCP - General Nurse Practitioner 01/18/24 documented as of this encounter Additional Source Comments The information contained in this document represents components of the legal health record. It is not the complete legal health record.[facility]
--- OUTSIDE RECORDS SUMMARY | 2025-07-14 15:45 | XMS_ITS | Encounter Summary ---
Author Organization [employer] Address [address] [facility] 7 [place] [address] Care Team Providers Care Bee Keeper Name Role Phone Ruby Duong Primary Care Provider [phone] Reason for Visit * Reason Onset Date Comments Med Refill 02/04/2025 Encounter Details Date Type Department Care Team ([facility] st Contact Info) Description 02/04/2025 Refill [facility] MED[facility]INE [address] [place] [address] Ruby Duong ANP [address] [place] [address] Gender dysphoria Social History Tobacco Use Types [...] Description 08/04/2025 10:15 AM EST Office Visit [facility] [address] [place] [address] Ruby Duong ANP [address] [place] [address] documented as of this encounter Visit Diagnoses Diagnosis Gender dysphoria documented in this encounter Additional Health Concerns Assessment Noted Time PHQ-9 Depression Total Score: 11 025 9:48 AM EDT documented as of this encounter Care Teams Bee Keeper Relationship Specialty Start Date End Date Ruby Duong ANP [address] [place] [address] PCP - General Family Medicine 05/18/23 documented as of this encounter
--- OUTSIDE RECORDS SUMMARY | 2025-07-14 15:45 | XMS_ITS | Encounter Summary ---
Author Organization [employer] Address [address] [facility] 7t [place] [address] Care Team Providers Care Picture Painter Name Role Phone uRby Duong Primary Care Provider [phone] Reason for Visit * Reason Onset Date Comments Med Refill 02/09/2025 Encounter Details Date Type Department Care Team ([facility] st Contact Info) Description 02/09/2025 Refill [facility] MED[facility] [address] [place] [address] Ruby Duong ANP [address] [place] [address] Gender dysphoria; Allergic rhinitis due to animal hair and dander Social History Tobacco Use Types Packs/Day Years [...] Description 08/04/2025 10:15 AM EST Office Visit [facility] [address] [place] [phone] Ruby Duong ANP [address] [place] [address] documented as of this encounter Visit Diagnoses Diagnosis Gender dysphoria Allergic rhinitis due to animal hair and dander Allergic rhinitis due to animal (cat) (dog) hair and dander documented in this encounter Additional Health Concerns Assessment Noted Time PHQ-9 Depression Total Score: 11 025 9:48 AM EDT documented as of this encounter Care Teams Picture Painter Relationship Specialty Start Date End Date Ruby Duong ANP [address] [place] [address] PCP - General Family Medicine 05/18/23 documented as of this encounter
--- OUTSIDE RECORDS SUMMARY | 2025-07-14 15:45 | XMS_ITS | Encounter Summary ---
Author Organization [employer] Address [address] [facility] 7t [place] [address] Care Team Providers Care Residential Real Estate Appraiser Name Role Phone Ruby Duong Primary Care Provider [phone] Reason for Visit * Reason Onset Date Comments Med Refill 10/30/2024 Encounter Details Date Type Department Care Team ([facility] st Contact Info) Description 10/30/2024 Refill [facility] MEDICINE [address] [place] [address] Ruby Duong ANP [address] [place] [address] Gender dysphoria Social History Tobacco Use Types [...] Description 08/04/2025 10:15 AM EST Office Visit [facility] MED[facility]INE [address] [place] [address] Ruby Duong ANP [address] [place] [address] documented as of this encounter Visit Diagnoses Diagnosis Gender dysphoria documented in this encounter Care Teams Residential Real Estate Appraiser Relationship Specialty Start Date End Date Ruby Duong ANP [address] [place] [address] PCP - General Family Medicine 05/18/23 documented as of this encounter
--- OUTSIDE RECORDS SUMMARY | 2025-07-14 15:45 | XMS_ITS | Encounter Summary ---
Author Organization [employer] Address [address] [place] [address] 7 [place] [address] Care Team Providers Care Community Coordinator Name Role Phone Rhoda Ruby PAREDES Primary Care Provider [phone] Encounter Details Date Type Department Care Team (Late st Contact Info) Description 02/03/2025 Orders Only [facility] [address] [place] [address] ProviderDeanna MD Social History Tobacco Use Types Packs/Day Years [...] Description 08/04/2025 10:15 AM EST Office Visit [facility] [address] [place] [address] Ruby Duong ANP [address] [place] [address] documented as of this encounter Procedures Procedure Name Priority Date/Time Associated Diagnosis Comments CT CHEST W CONTRAST Routine 02/03/2025 2:24 PM EDT documented in this encounter Results * CT Chest w/ Contrast (02/03/2025 2:24 PM EDT) Anatomical Region Laterality Modality Body, Chest Computed Tomogra phy us Historical Provider MD WAT[facility] CT PROCEDURES Final R esult documented in this encounter Visit Diagnoses Not on filedocumented in this encounter Additional Health Concerns Assessment Noted Time PHQ-9 Depression Total Score: 11 025 9:48 AM EDT documented as of this encounter Care Teams Community Coordinator Relationship Specialty Start Date End Date Ruby Duong ANP [address] [place] [address] PCP - General Family Medicine 05/18/23 documented as of this encounter
--- OUTSIDE RECORDS SUMMARY | 2025-07-14 15:45 | XMS_ITS | Encounter Summary ---
Author Organization [employer] Address [address] [facility] 7t [place] [address] Care Team Providers Care Fitness Instructor Name Role Phone Ruby Duong Primary Care Provider [phone] Encounter Details Date Type Department Care Team ([facility] st Contact Info) Description 06/19/2023 Telephone [facility] MEDICINE [address] [place] [address] Ruby Duong ANP [address] [place] [address] Social History Tobacco Use Types Packs/Day Years [...] Description 08/04/2025 10:15 AM EST Office Visit [facility] MEDICINE [address] [place] [address] Ruby Duong ANP [address] [place] [address] documented as of this encounter Visit Diagnoses Not on filedocumented in this encounter Care Teams Fitness Instructor Relationship Specialty Start Date End Date Ruby Duong ANP [address] [place] [address] PCP - General Family Medicine 05/18/23 documented as of this encounter
--- OUTSIDE RECORDS SUMMARY | 2025-07-14 15:45 | XMS_ITS | Encounter Summary ---
Author Organization [employer] Address [address] [facility] 7 [place] [address] Care Team Providers Care Electrical Supervisor Name Role Phone Ruby Duong Primary Care Provider [phone] Reason for Visit * Reason Onset Date Comments Med Refill 01/30/2025 Encounter Details Date Type Department Care Team ([facility] st Contact Info) Description 01/30/2025 Refill [facility] MEDICINE [address] [place] [address] Ruby Duong ANP [address] [place] [address] Gender dysphoria Social History Tobacco Use Types [...] Description 08/04/2025 10:15 AM EST Office Visit [facility] [address] [place] [address] Ruby Duong ANP [address] [place] [address] documented as of this encounter Visit Diagnoses Diagnosis Gender dysphoria documented in this encounter Additional Health Concerns Assessment Noted Time PHQ-9 Depression Total Score: 11 025 9:48 AM EDT documented as of this encounter Care Teams Electrical Supervisor Relationship Specialty Start Date End Date Ruby Duong ANP [address] [place] [address] PCP - General Family Medicine 05/18/23 documented as of this encounter
--- OUTSIDE RECORDS SUMMARY | 2025-07-14 15:45 | XMS_ITS | Encounter Summary ---
Author Organization [employer] Address [address] [place] [address] 7t [place] [address] Care Team Providers Care Termite Technician Name Role Phone Kartik Cuevas MD Primary Care Provider [phone] Ruby Duong Primary Care Provider [phone] Encounter Details Date Type Department Care Team (Late st Contact Info) Description 02/07/2023 Telephone [facility] [address] [place] [phone] Kartik Cuevas MD [address] [place] [address] [phone] Social History Tobacco Use Types Packs/Day Years [...] Description 08/04/2025 10:15 AM EST Office Visit [facility] [address] [place] [address] Ruby Duong ANP [address] [place], [place] [phone] documented as of this encounter Visit Diagnoses Not on filedocumented in this encounter Care Teams Termite Technician Relationship Specialty Start Date End Date Kartik Cuevas MD [address] [place] [address] PCP - General Pediatrics 11/29/18 05/17/23 Ruby Duong ANP [address] [place] [address] PCP - General Family Medicine 05/18/23 documented as of this encounter
--- OUTSIDE RECORDS SUMMARY | 2025-07-14 15:45 | XMS_ITS | Clinical Summary ---
Author Organization [employer] Address [address] [facility] 7t [place] [address] Care Team Providers Care Blister Pack Operator Name Role Phone Ruby Duong LENA Primary Care Provider [phone] Allergies Active Allergy Reactions Criticality Noted Date Comments Amoxicillin Rash Low 10/17/2022 Penicillins Anaphylaxis,Rash High 04/14/2016 Medications benzoyl peroxide (Benzoyl Peroxide Wash) 5 % external washIndications :Acne vulgaris USE IN PLACE OF BODY WASH ON CHEST AND BACK 236 mL 2 04/28/20 24 Active ARIPiprazole (Abilify) 5 MG tablet Take 5 mg by mouth Once per day. 06/17/20 24 Active sildenafil (Viagra) 50 MG tabletIndicatio ns:Drug-induced erectile dysfunction Take 1 tablet as needed 30 to 60 minutes before sexual activity 30 tablet 1 10/02/19 25 Active famotidine (Pepcid) 20 MG tabletIndicatio ns:Gastroesopha geal reflux disease, unspecified whether esophagitis present TAKE 1 TABLET BY MOUTH DAILY NEEDED FOR ACID REFLUX 90 tablet 10/30/19 25 Active progesterone (Prometrium) 100 MG capsuleIndicati ons:Gender dysphoria Take 1 capsule at bedtime 90 capsule 3 12/10/19 25 Active cetirizine (ZyrTEC) 10 MG tabletIndicatio ns:Allergic rhinitis due to animal hair and dander Take 1 tablet (10 mg) by mouth if needed each day for allergies. 90 tablet 12/27/19 25 Active omeprazole (PriLOSEC) [address] capsuleIndicati ons:Gastroesoph ageal reflux disease, unspecified whether esophagitis present TAKE 1 CAPSULE BY MOUTH TWICE DAILY BEFORE A MEAL. DO NOT CRUSH OR CHEW 180 capsule 03/17/20 Active emtricitabine-t enofovir DF (Truvada) 200-300 MG tablet Take 1 tablet by mouth Once per day. 04/02/20 Active Concerta 36 MG CR tablet Take 36 mg by mouth in the morning. 03/24/20 Active methylphenidate (Ritalin) 5 MG tablet Take 5 mg by mouth. Once daily 03/24/20 Active sertraline (Zoloft) 100 MG tablet Take 100 mg by mouth Once per day. Active sertraline (Zoloft) 50 MG tablet Take 50 mg by mouth Once per day. Active lamoTRIgine (LaMICtal) 25 MG tablet Take 25 mg by mouth at bedtime. Active doxycycline (Vibra-Tabs) 100 MG tabletIndicatio ns:On pre-exposure prophylaxis for HIV Take 2 capsules once within 72 hours of unprotected intercourse. Take with a full glass of water and do not lie down for at least 30 minutes after. 40 tablet 04/27/20 Active estradiol valerate (Delestrogen) 20 MG/ML injectionIndica tions:Gender dysphoria Inject 0.25mL subcutaneously every 7 days 5 mL 04/27/20 Active Syringe, Disposable, (B-D SYRINGE LUER-RUDOLPH 1CC) 1 ML miscIndications :Gender dysphoria 1 each 1 (one) time per week. Use to inject estradiol 12 each 04/27/20 25 Active Needle, Disp, (Easy Touch Hypodermic Needle) 18G X 1 miscIndications :Gender dysphoria Use 1 each weekly to draw up estradiol (not for injecting) 12 each 04/27/20 25 Active Needle, Disp, (CareTouch Hypodermic Needle) 25G X 5/8 miscIndications :Gender dysphoria Use 1 each weekly to inject estradiol subcutaneously 12 each 04/27/20 25 Active sharps containerIndica tions:Gender dysphoria Use for disposal of used pen needles, needles, syringes, injection supplies 1 each 04/27/20 25 Active spironolactone (Aldactone) 50 MG tabletIndicatio ns:Gender dysphoria TAKE 1 TABLET BY MOUTH TWICE DAILY (AM/PM) 180 tablet 3 12/30/19 25 025 Discontin ued(Thera py completed ) Active Problems Problem Noted Date Diagnosed Date [...] Encounters Date Type Department Care Team Description 07/13/2025 Orders Only [facility] [place] [address] Ruby Duong ANP 07/07/2025 Orders Only [facility] [place] [id number] Ruby Duong ANP 05/22/2025 Telephone [facility] [place] [id number] Ruby Duong ANP July04/28/2025 Telephone [facility] [place] [id number] Christina Dowell, NIDHI Appointment Request 04/27/2025 3:30 PM EDT Office Visit [place] [id number] Ruby Duong ANP On pre-exposure prophylaxis for HIV (Primary Dx); Gender dysphoria; Encounter for immunization 04/27/2025 Travel 04/27/2025 Telephone [facility] [address] [place], [place] [phone] Ruby Duong ANP 04/20/2025 Telephone [facility] [address] [place] [address] Ruby Duong ANP FYI from Last 3 Months Immunizations Immunization Administration Dates Next Due DTaP, 5 pertussis antigens 06/19/2005,,2004,03/22 HPV 9-Valent 05/24/2017,03/30/2016 Hep A, ped/adol, 2 dose 05/24/2017,03/30/2016 Hep B, Adolescent or Pediatric 2004,2003,2004 Hep B, adult 11/26/2023,06/25/2023,05/28/2023 HiB, unspecified 2004 Hib (PRP-T) 2004,2004 IPV 03/30/2016, 5,2004,03/22 Influenza injectable quadriv alent preservative free 05/28/2023,06/29/2021,10/01/2020,05/14,05/24/2017,04/14/2016,05/07/2014 Influenza, seasonal, injecta ble, preservative free 04/27/2025 MMR 02/18/2013,2005 Meningococcal MCV4P ACYW-135 10/01/2020,04/14/20 16 [...] Sign Reading Time Taken Comments Blood Pressure 130/80 04/27/2025 3:17 PM EDT Pulse 84 04/27/2025 3:17 PM EDT Temperature 37.1 C (98.8 F) 04/27/2025 3:17 PM EDT Respiratory Rate 20 04/27/2025 3:17 PM EDT Oxygen Saturation 98% 04/27/2025 3:17 PM EDT Inhaled Oxygen Concentration - - Weight 95 kg (209 lb 8 oz) 04/27/2025 3:17 PM ED T Height 176.5 cm (5' 9.5 ) 04/27/2025 3:17 PM EDT Body Mass Index 30.49 04/27/2025 3:17 PM EDT Plan of Treatment Upcoming Encounters Date Type Department Care Team (Late st Contact Info) Description 08/04/2025 10:15 AM EST Office Visit [facility] [address] [place] [address] Ruby Duong, ANP [address] [place], [place] [phone] Health Maintenance Due Date Last Done Comments Alcohol/Substance Use Screening 2016 Family Planning (PISQ) 01/18/2019 Meningococcal B Vaccine (1 of 2 - Standard) 2020 COVID-19 Vaccine ( - 2024- season) 2025 04/21/2024, 05/28/2023, 10/22/2021, Additional history exists Depression Monitoring 06/11/2025 12/09/2024, 025 SDOH Screening 12/02/2025 12/02/2024 Disability Screening 12/09/2025 12/09/2024 Chlamydia and Gonorrhea Screening 01/14/2026 09/01/2023, 02/16/2021, 02/16/2021, Additional history exists Postponed from 09/01/2024 (Patient Refused) Tobacco Screening 04/27/2026 04/27/2025 DTaP/Tdap/Td Vaccines (7 - Td or Tdap) 02/05/2035 02/05/2025, 03/30/2016, 06/19/2005, Additional history exists Zoster Vaccines (1 of 2) 01/18/2054 RSV Patients and Patients Aged 60 years or older (1 - 1-dose 75+ series) 01/18/2079 HIB Vaccines Aged Out 2004, 04/30, 2004 No longer eligible based on patient's age to complete this topic Pneumococcal Vaccine: Pediatrics (0 to 5 Years) and At-Risk Patients (6 to 49) Years Completed 06/02/2005, 2004, 2004, Additional history exists IPV Vaccines Completed 03/30/2016, 07/2004, 2004, Additional history exists HPV Vaccines Completed 05/24/2017, 03/30/2016 Hepatitis A Vaccines Completed 05/24/2017, 03/30/20 16 Meningococcal Vaccine Completed 10/01/2020, 016 HIV Screening Completed 05/26/2023, 02/16/2021 Hepatitis C Screening Completed 05/26/2023, 021 Hepatitis B Vaccines Completed 11/26/2023, 06/25/2023, 05/28/2023, Additional history exists Influenza Vaccine Completed 04/27/2025, , 05/28/2023, Additional history exists RSV under 20 months [...] EST) CT PCR NOT DETECTED Not Detect. [facility] Comment:A not detected test result does [...] psychologicalconsequences. NG PCR NOT DETECTED Not Detect. [facility] Comment:A not detected test result does [...] PM EST 09/01/2023 7:26 PM EST Narrative [facility] - 09/02/2023 2:57 AM EST Urine us Generic External Data Provider LAB MICROBIOLOGY - GENERAL ORDERABLES Final Result [facility] [address] [place] [address] [phone] * Hepatitis Exposure Source (05/26/2023 2:23 PM EDT) ~Hepatitis B Surface Antibody NONREACTIVE Nonreactive [facility] Comment:Nonreactive: < 8.00 mIU/mL Hepatitis B Core Antibody Nonreactive Nonreactive [facility] Hepatitis C Ab NonReactive Nonreactive [facility] Hepatitis B Surface Ag Negative Negative [facility] 05/26/2023 2:23 PM EDT 05/26/2023 2:46 PM EDT [facility] External Provider LAB BLO OD ORDERABLES Final Result Performing Organization Address [facility]/ZIP Co de Phone Number [facility] [address] [place] [address] [phone] * HIV Ab/Ag (ID RICHY) (05/26/2023 2:23 PM EDT) HIV AB/AG Nonreactive Nonreactive [facility] Comment:HIV-1 p24 Ag and/or HIV-1/HIV-2 Ab not detected.A test result that is nonreactive does not exclude thepossibility of exposure to or infection with HIV-1 and/orHIV-2. Nonreactive results in this assay for individualswith prior exposure to HIV-1 and/or HIV-2 may be due toantigen and antibody levels that are below the limit ofdetection of this assay.The [employer] HIV Ag/Ab Combo assay result andsupplemental assay results should be interpreted inconjunction with the patient's clinical presentation,history and other laboratory results. If the results areinconsistent with clinical evidence, additional testing issuggested to confirm the result. 05/26/2023 2:23 PM EDT 05/26/2023 2:46 PM EDT Generic External Data Provider LAB BLOOD ORDERAB LES Final Result Performing Organization Address [facility]/ZIP Co de Phone Number [facility] [address] [place] [address] [phone] from Last 3 Months or Most Recently Relevant to Health Maintenance [facility] Care Teams Blister Pack Operator Relationship Specialty Start Date End Date Ruby Duong ANP [address] [place] [phone] PCP - General Family Medicine 05/18/23
--- OUTSIDE RECORDS SUMMARY | 2025-07-14 15:45 | XMS_ITS | Encounter Summary ---
Author Organization [employer] Address [address] [facility] 7t [place] [address] Care Team Providers Care Rating Clerk Name Role Phone Ruby Duong Primary Care Provider [phone] Reason for Visit * Reason Onset Date Comments Med Refill 01/05/2024 Encounter Details Date Type Department Care Team ([facility] st Contact Info) Description 01/05/2024 Refill [facility] [address] [place] [address] Ruby Duong ANP [address] [place] [address] Acne vulgaris Social History Tobacco Use Types [...] Description 08/04/2025 10:15 AM EST Office Visit [facility] [address] [place] [address] Ruby Duong ANP [address] [place] [address] documented as of this encounter Visit Diagnoses Diagnosis Acne vulgaris Other acne documented in this encounter Care Teams Rating Clerk Relationship Specialty Start Date End Date Ruby Duong ANP [address] [place] [phone] PCP - General Family Medicine 05/18/23 documented as of this encounter
--- OUTSIDE RECORDS SUMMARY | 2025-07-14 15:45 | XMS_ITS | Encounter Summary ---
Author Organization Formerly [facility] Address [address] [place] [address] [place] [address] Phone Care Team Providers Care Select Banker Name Role Phone Ruby Duong NP Primary Care Provider [phone] Encounter Details Date Type Department Care Team (Late st Contact Info) Description 04/02/2024 Procedure Pass [facility] MR Imaging, [facility] [address] [place] [address] Social History Tobacco Use Types Packs/Day Years Used Date Smoking Tobacco: Never Assessed Education Answer Date Recorded Are you interested in more education? Not on abhishek e 11/24/2022 Are you concerned about learning? Not on file 11/24/2022 No 11/24/2022 No 11/24/2022 Digital Access Answer Date Recorded No 12/22/2022 No 12/22/2022 Reliable internet access at home? Not on file 12/22/2022 Device with a working camera? Not on file Sex and Gender Information Value Date Recorded Sex Assigned at Male 01/18/2024 4:29 PM EDT Legal Sex Male 8:44 PM EDT Gender Identity Female 06/09/2024 5:26 PM EST Sexual Orientation Bisexual 01/18/2024 4: 29 PM EDT documented as of this encounter Plan of Treatment Not on file documented as of this encounter Visit Diagnoses Not on filedocumented in this encounter Additional Health Concerns Infection Onset Date Last Indicated Resolved Time CoV-Risk Comment:Test ordered in error 06/10/2024 06/10/2024 06/10/2024 12:20 PM EST CoV-Risk 06/13/2024 06/13/202406/24/2024 1:21 AM EST documented as of this encounter Care Teams Select Banker Relationship Specialty Start Date End Date Ruby Duong NP [address] [place] [phone] PCP - General Nurse Practitioner 01/18/24 documented as of this encounter Additional Source Comments The information contained in this document represents components of the legal health record. It is not the complete legal health record.[facility]
--- OUTSIDE RECORDS SUMMARY | 2025-07-14 15:46 | XMS_ITS | Encounter Summary ---
Author Organization [facility] Address [address] [place] [address] Phone Care Team Providers Care Welfare Centre Manager Name Role Phone Ruby Duong NP Primary Care Provider [phone] Encounter Details Date Type Department Care Team (Late st Contact Info) Description 09/12/2024 Procedure Pass [facility] Periop [address] [place] [address] Social History Tobacco Use Types Packs/Day Years [...] got money to buy more. Never True 09/12/2024 Within the past 6 months the food we bought just didn't last and we didn't have enough money to get more. Never True Residential Stability Answer Date Recor ded What is your housing situation today? I have james sing 09/12/2024 How many times have you move d in the past 12 months? Zero (I did not move) 09/12/2024 Paying for Meds Answer Date Recorded Do you have trouble paying for medicines? No 09/12/2024 Paying Utility Bills Answer Date Record ed Do you have trouble paying your heating or elect ricity bill? No 09/12/2024 Transportation Answer Date Recorded Has the lack of transportati on kept you from medical appointments or from getting medications? No 09/12/2024 Digital Access Answer Date Recorded No 09/12/2024 Yes 09/12/2024 Do you have reliable internet access at home? Ye s 09/12/2024 Do you have a device (e.g., phone, tablet, computer) with a working camera? Yes 09/12/2024 Intimate Partner Violence Answer Date R ecorded Are you denied basic needs s uch as food, clothing, or medical care? No 09/12/2024 In the past 12 months have y ou been in a relationship with a person who hurts, threatens, or tries to control you? No 09/12/2024 Are you denied basic needs s uch as food, clothing, or medical care? No 09/12/2024 In the past 12 months have y ou been in a relationship with a person who hurts, threatens, or tries to control you? No 09/12/2024 Sex and Gender Information Value Date Recorded Sex Assigned at Male 01/18/2024 4:29 PM EDT Legal Sex Male 8:44 PM EDT Gender Identity Female 06/09/2024 5:26 PM EST Sexual Orientation Bisexual 01/18/2024 4: 29 PM EDT documented as of this encounter Functional Status * Calculated C-SSRS Risk Score (Lifetime/Recent) Answer Date of Assessment Author High Risk 09/12/2024 8:33 PM Denae Parks, NIDHI * [place] Suicide Severity Rating Scale (Screener/Recent Self-Report) Question Answer Date of Assessment Author 1. Wish to be (Past 1 Month) Yes 09/12/2024 8:33 PM Denae Parks, NIDHI 2. Non-Specific Active Suicidal Thoughts (Past 1 Month) Yes 09/12/2024 8:33 PM Denae Parks, NIDHI 3. Active Suicidal Ideation with any Methods (Not Plan) Without Intent to Act (Past 1 Month) Yes 09/12/2024 8:33 PM Denae Parks, NIDHI 4. Active Suicidal Ideation with Some Intent to Act, Without Specific Plan (Past 1 Month) Yes 09/12/2024 8:33 PM Denae Parks RN 5. Active Suicidal Ideation with Specific Plan and Intent (Past 1 Month) Yes 09/12/2024 8:33 PM Gamal Parks RN 6. Suicidal Behavior (Lifetime) No 09/12/2024 8:33 PM Denae Parks RN documented as of this encounter Plan of Treatment Not on file documented as of this encounter Visit Diagnoses Not on filedocumented in this encounter Care Teams Welfare Centre Manager Relationship Specialty Start Date End Date Ruby Duong NP [address] [place] [id number] PCP - General Nurse Practitioner 01/18/24 documented as of this encounter Additional Source Comments The information contained in this document represents components of the legal health record. It is not the complete legal health record.[facility]
--- OUTSIDE RECORDS SUMMARY | 2025-07-14 15:46 | XMS_ITS | Encounter Summary ---
Author Organization [facility] Address [address] [place] [address] [place] [phone] Phone Care Team Providers Care Mixologist Name Role Phone Ruby Duong NP Primary Care Provider [phone] Encounter Details Date Type Department Care Team (Late st Contact Info) Description 09/12/2024 Ancillary Orders [facility] Vascular Surgery [address] [place] [address] Mike Cardona MD [address] [place] [address] [email or web address] (Primary Dx) Social History Tobacco Use Types Packs/Day Years Used Date Smoking Tobacco: Never Passive Smoke Exposure: Never Smokeless Tobacco: Never Alcohol Use Standard Drinks/Week Comments Yes 1 (1 standard drink = 0.6 oz pur e alcohol) Education Answer Date Recorded Are you interested in more education? Not on abhihsek e 11/24/2022 Are you concerned about learning? [...] Author High Risk 09/12/2024 8:33 PM Denae Parks RN * [place] Suicide Severity Rating Scale (Screener/Recent Self-Report) Question [...] Yes 09/12/2024 8:33 PM Denae Parks RN 4. Active Suicidal Ideation with Some Intent [...] as of this encounter Visit Diagnoses Diagnosis Pain- Primary Generalized pain documented in this encounter Care Teams Mixologist Relationship Specialty Start Date End Date Ruby Duong NP [address] [place] [phone] PCP - General Nurse Practitioner 01/18/24 documented as of this encounter Additional Source Comments The information contained in this document represents components of the legal health record. It is not the complete legal health record.[facility]
--- OUTSIDE RECORDS SUMMARY | 2025-07-14 15:46 | XMS_ITS | Encounter Summary ---
Author Organization [facility] Address [address] [place] [address] [place] [phone] Phone Care Team Providers Care Sailmaker Name Role Phone Ruby Duong NP Primary Care Provider [phone] Encounter Details Date Type Department Care Team (Late st Contact Info) Description 09/04/2024 Procedure Pass [facility] [address] [place] [address] Social History Tobacco Use Types Packs/Day Years [...] with a working camera? Not on file Intimate Partner Violence Answer Date R ecorded Are you denied basic needs s uch as food, clothing, or medical care? No 06/10/2024 In the past 12 months have y ou been in a relationship with a person who hurts, threatens, or tries to control you? No 06/10/2024 Are you denied basic needs s uch as food, clothing, or medical care? No 06/10/2024 In the past 12 months have y ou been in a relationship with a person who hurts, threatens, or tries to control you? No 06/10/2024 Sex and Gender Information Value Date Recorded [...] Start Date End Date Ruby Duong NP [address] [place] [phone] PCP - General Nurse Practitioner 01/18/24 documented as of this encounter Additional Source Comments The information contained in this document represents components of the legal health record. It is not the complete legal health record.[facility]
[2025-07-14 16:01] LABS: Alanine Aminotransferase 26 U/L (0-40); Albumin Level 4.9 g/dL (3.5-5.0); Alkaline Phosphatase 93 U/L (39-117); Anion Gap 10 (12-20); Aspartate Amino Transferase 23 U/L (5-37); Blood Urea Nitrogen 12 mg/dL (9-16); Calcium 9.7 mg/dL (8.4-10.2); Carbon Dioxide 28 mmol/L (22-29); Chloride 104 mmol/L (96-108); Estimated Glomerular Filt Rate > 60; Potassium 4.1 mmol/L (3.3-5.1); Sodium 138 mmol/L (135-145); Total Protein 7.2 g/dL (6.5-8.0)
== END 2025-07-14 11:55 | disposition home or self-care (01) ==
LOC: HO.HHCL 11:54
PROVIDERS: PCP Nurse Practitioner Primary Care; Visit Provider Nurse Practitioner Primary Care
DX: F64.9 Gender identity disorder, unspecified (principal)
CPT/HCPCS: 36415; 80048; 80076; 82670; 84402; 84403